=== PATIENT | male | born 1945 | race Caucasian/White ===

== ENCOUNTER 2016-12-13 10:20 | Inpatient (IN) | payer BC, OTHER ==
[~2016-12-13] VITALS: Ht 193 cm; Wt 93.0 kg
[~2016-12-13 10:20] MED LIST: ALFU10TA30 PO; ASPI-435 PO; MULT-506 PO; OMEP40CA PO; SIMV20TA2 PO
[2016-12-13] MEDS ORDERED: SODIUM CHLORIDE 0.9% 1000ML 1,000 ML IV STA ×3 (10:55→13:44)
[2016-12-13] MEDS ORDERED: PRLSR20 PO (11:02)
[2016-12-13] MEDS ORDERED: CHOL100041 PO (11:02)
[2016-12-13 11:42] LABS: URINE APPEARANCE CLOUDY (CLEAR); URINE BILIRUBIN NEG (NEG); URINE COLOR YELLOW; URINE NITRITE POS (NEG); URINE PH 6.5 (4.5-7.5); URINE SPECIFIC GRAVITY 1.015 (1.000-1.030); UROBILINOGEN NEG (NEG)
[2016-12-13 11:47] LABS: MANUAL MICROSCOPIC REQUIRED? NO; REVIEW REQ? NO
[2016-12-13 11:54] LABS: BASO % 0.1 %; BASO ABS # 0.01 K/uL (0-0.2); COMPLETE YES; HEMATOCRIT 35.7 % (42-52); IG% 0.3 %; LYMPH % 5.4 %; LYMPH ABS # 0.71 K/uL (1.2-3.4); MEAN CELL VOLUME 93.7 fL (80-100); MEAN CORPUSCULAR HEMOGLOBIN 33.3 pg (25-34); MEAN CORPUSCULAR HGB CONC 35.6 g/dl (32-36); MEAN PLATELET VOLUME 10.1 fL (7.4-10.4); MONO % 5.5 %; NEUT % 88.7 %; PLATELET COUNT 187 K/uL (130-400); RED BLOOD COUNT 3.81 M/uL (4.7-6.1); WHITE BLOOD COUNT 13.17 K/uL (4.8-10.8)
[2016-12-13 12:02] LABS: INR 1.2 (0.9-1.1); PARTIAL THROMBOPLASTIN RATIO 1.2; PROTHROMBIN TIME (PATIENT) 12.8 SECONDS (9.0-12.0)
[2016-12-13 12:10] LABS: ALT/SGPT 22 U/L (12-78); BLOOD UREA NITROGEN 19 mg/dl (7-18); BUN/CREATININE RATIO 11.9 (10-20); CALCIUM 8.5 mg/dl (8.5-10.1); CARBON DIOXIDE 22 mmol/L (21-32); CHLORIDE 102 mmol/L (98-107); GLUCOSE 140 mg/dl (70-99); POTASSIUM 3.8 mmol/L (3.5-5.1); SODIUM 135 mmol/L (136-145)
[2016-12-13 12:21] LABS: ALKALINE PHOSPHATASE 78 U/L (45-117); AST/SGOT 21 U/L (15-37); THYROID STIMULATING HORMONE 0.114 uIu/ml (0.300-4.500)
[2016-12-13] MEDS ORDERED: PIPERACILLIN/TAZOBACTAM 4.5 GM/100ML D5W IV STA (13:44)
[2016-12-13] MEDS ORDERED: ACETAMINOPHEN 500 MG TAB PO ONE (14:16)
[2016-12-13] MEDS ORDERED: DAPTOmycin IV 500 MG in SODIUM CHLORIDE 0.9% 50ML 50 ML IV STA (14:25)
[2016-12-13] MEDS ORDERED: MAGNESIUM HYDROXIDE SUSP 30 ML UDC PO PRN (15:15)
[2016-12-13] MEDS ORDERED: POLYETHYLENE (MIRALAX) 17 GM PACK PO PRN (15:15)
--- NOTE | 2016-12-13 15:28 | History and Physical ---
History & Physical Date & Time of Service: Dec 13, 2016 at 15:09 Chief Complaint: Uti, Fever, Chills, Body Aches Primary Care Physician: Rancho Mendoza MD, Urology History of Present Illness Source: patient 71 y/o M here with PMH of BPH, GERD c/o increased urinary frequency , urgency, dysuria which started about 2 days ago. He also had fever of about 102 F with chils which started yesterday. he also noticed that he had lower abdominal pressure and decreased UO and was slightly nauseous but denied vomiting/diarrhea/constipation. He had tested His urine at a pharmacy UTI kit which indicated that he had a UTI and was recommended to go to the ER by his Urologist. Denies any coughing though he had upper respiratory s/s last week which have resolved. Denies any h/o kidney stones. had 1 other UTI in the past several years ago. He was also admitted with a HELADIO in 2013 which was thought to be sec to ARB and has since been discontinued. Past Medical/Surgical History Medical Problems: (1) HELADIO (acute kidney injury) Status: Resolved (2) UTI (urinary tract infection) Status: Resolved Family History Cancer Hypertension Lung disease Social History Smoking Status: Never Smoker Immunizations History of Influenza Vaccine: Yes History of Tetanus Vaccine?: Yes History of Pneumococcal: Yes History of Hepatitis B Vaccine: No Multi-Drug Resistant Organisms History of MDRO: No Allergies Coded Allergies: No Known Allergies (Unverified , NONE, 12/13/16) Home Medications Scheduled Alfuzosin Hcl (Uroxatral), 10 MG PO DAILY Aspirin (Aspirin 81), 81 TAB PO DAILY Cholecalciferol (D 1000), 1,000 UNITS PO DAILY Multivitamin (Multivitamin), 1 TAB PO DAILY Omeprazole (Prilosec), 40 MG PO DAILY Simvastatin (Zocor), 20 MG PO 2XWK Review of Systems Constitutional: + chills, + fever, + sweats Eyes: No eye pain, No worsening of vision ENT: No hearing loss Respiratory: No cough, No shortness of breath, No sputum Cardiovascular: No chest pain Abdomen: + nausea, + problem reported (lower abdominal discomfort), No constipation, No diarrhea, No vomiting Musculoskeletal: No joint pain Genitourinary - Male: + dysuria, + urinary frequency, + urinary hesitancy, + urinary urgency Physical Exam Vital Signs Date Time Temp Pulse Resp B/P Pulse Ox O2 Delivery O2 Flow Rate FiO2 12/13/16 14:15 38.0 84 20 142/69 94 Room Air 12/13/16 11:48 82 21 150/71 100 Room Air 12/13/16 11:47 100 Room Air 12/13/16 10:30 37.5 90 18 158/66 95 Room Air General Appearance: WD/WN, no apparent distress Head: normocephalic, atraumatic Eyes: normal inspection ENT: normal ENT inspection, hearing grossly normal Neck: supple Respiratory/Chest: chest non-tender, lungs clear, normal breath sounds, no respiratory distress, no accessory muscle use Cardiovascular: regular rate, rhythm, no edema, no murmur Abdomen/GI: normal bowel sounds, soft Back: normal inspection, no CVA tenderness Extremities/Musculoskelatal: normal inspection, no calf tenderness, no pedal edema Neurologic/Psych: alert, normal mood/affect, oriented x 3 Skin: normal color Diagnostics Laboratory Results Results Past 24 Hours Test 12/13/16 10:45 12/13/16 11:40 12/13/16 11:43 Range/Units Urine Color YELLOW Urine Appearance CLOUDY CLEAR Urine pH 6.5 4.5-7.5 Urine Specific [place] 1.015 1.000-1.030 Urine Protein TRACE NEG Urine Glucose (UA) NEG NEG Urine Ketones TRACE NEG Urine Occult Blood 1+ NEG Urine Nitrite POS NEG Urine Bilirubin NEG NEG Urine Urobilinogen NEG NEG Urine Leukocyte Esterase LARGE NEG Urine WBC (Auto) >30 0-5 /hpf Urine RBC (Auto) 5-10 0-4 /hpf Urine Hyaline Casts (Auto) 1-5 0-5 /lpf Urine Epithelial Cells (Auto) 5-10 0-5 /lpf Urine Bacteria (Auto) 4+ NEG White Blood Count 13.17 4.8-10.8 K/uL Red Blood Count 3.81 4.7-6.1 M/uL Hemoglobin 12.7 14.0-18.0 g/dL Hematocrit 35.7 42-52 % Mean Corpuscular Volume 93.7 80-100 fL Mean Corpuscular Hemoglobin 33.3 25-34 pg Mean Corpuscular Hemoglobin Concent 35.6 32-36 g/dl Platelet Count 187 130-400 K/uL Mean Platelet Volume 10.1 7.4-10.4 fL Neutrophils (%) (Auto) 88.7 % Lymphocytes (%) (Auto) 5.4 % Monocytes (%) (Auto) 5.5 % Eosinophils (%) (Auto) 0.0 % Basophils (%) (Auto) 0.1 % Neutrophils # (Auto) 11.68 1.4-6.5 K/uL Lymphocytes # (Auto) 0.71 1.2-3.4 K/uL Monocytes # (Auto) 0.73 0.11-0.59 K/uL Eosinophils # (Auto) 0.00 0-0.5 K/uL Basophils # (Auto) 0.01 0-0.2 K/uL RDW Standard Deviation 40.2 36.4-46.3 fL RDW Coefficient of Variation 11.9 11.5-14.5 % Immature Granulocyte % (Auto) 0.3 % Immature Granulocyte # (Auto) 0.04 0.00-0.02 K/uL Prothrombin Time 12.8 9.0-12.0 SECONDS Prothromb Time International Ratio 1.2 0.9-1.1 Activated Partial Thromboplast Time 30.3 21.0-31.0 SECONDS Partial Thromboplastin Ratio 1.2 Sodium Level 135 136-145 mmol/L Potassium Level 3.8 3.5-5.1 mmol/L Chloride Level 102 98-107 mmol/L Carbon Dioxide Level 22 21-32 mmol/L Anion Gap 11.0 3-11 mmol/L Blood Urea Nitrogen 19 7-18 mg/dl Creatinine 1.60 0.60-1.40 mg/dl Est Creatinine Clear Calc Drug Dose 51.2 ml/min Estimated GFR () 49.2 Estimated GFR (Non- 42.4 BUN/Creatinine Ratio 11.9 10-20 Random Glucose 140 70-99 mg/dl Calcium Level 8.5 8.5-10.1 mg/dl Magnesium Level 2.0 1.8-2.4 mg/dl Total Bilirubin 1.7 0.2-1 mg/dl Direct Bilirubin 0.4 0-0.2 mg/dl Aspartate Amino Transf (AST/SGOT) 21 15-37 U/L Alanine Aminotransferase (ALT/SGPT) 22 12-78 U/L Alkaline Phosphatase 78 45-117 U/L Troponin I < 0.015 0-0.045 ng/ml Total Protein 7.2 6.4-8.2 gm/dl Albumin 3.7 3.4-5.0 gm/dl Lipase 176 73-393 U/L Thyroid Stimulating Hormone (TSH) 0.114 0.300-4.500 uIu/ml Bedside Lactic Acid Venous 1.90 0.90-1.70 mmol/L Microbiology Results 12/13/16 Blood Culture, Received Pending 12/13/16 Blood Culture, Received Pending 12/13/16 Urine Culture, Received Pending EKG Normal sinus rhythm with 1st degree A-V block Incomplete right bundle branch block Abnormal ECG Impression Assessment and Plan 71 y/o M here with PMH of BPH, GERD c/o increased urinary frequency , urgency, dysuria which started about 2 days ago. He also had fever of about 102 F with chills which started yesterday. Complicated UTI - Febrile with an elevated WBC - UA positive for Large leuc esterase, positive nitrite and 4+bacteria - UC/BC pending - POC lactic acid 1.9, repeat within 6 hours - Received zosyn and daptomycin in ER - Rocephin 1g daily - Continue IVF- NSS 150 mls/hr HELADIO : - Cr at 1.6, baseline at 1.2 - Likely sec to dehydration - Continue IVF and Monitor Cr BPH - Continue alfuzosin Hypercholesterolemia: - Continue Simvastatin( uses it only 2 times/week due to muscle aches) ?New onset hyperthyroidism: - TSH low at 0.114 - Free T4 ordered DVT prophylaxis: Lovenox Full code Dispo: Med/surg Level of Care Med/Surg Resuscitation Status FULL RESUSCITATION VTE Prophylaxis VTE Risk Assessment Done? Y/N: Yes Risk Level: Moderate Given or contraindicated: Enoxaparin (Lovenox)SQ Reviewed: Pt Seen/Exam by Me, RN Notes, HO Notes, Prior Records, Labs, RAD, EKG History Resident Physician Supervision Note: I was present with Dr. love during the history and exam. I discussed the case with the resident and agree with the findings and plan as documented in the note. Any exceptions or clarifications are listed here: 71 y/o M here with PMH of BPH, GERD c/o increased urinary frequency , urgency, dysuria which started about 2 days ago. He also had fever of about 102 F with chills which started yesterday. Constitutional: denies: chills EENTM: denies: tearing Respiratory: negative: cough Gastrointestinal/Abdominal: negative: see HPI Genitourinary: positive dysuria, positive frequency Musculoskeletal: negative: back pain Neurological/Psych: negative: anxiety Hematologic/Lymphatic: negative: anemia General Appearance: WD/WN, no apparent distress Eye Exam: bilateral eye normal inspection Ears, Nose, Throat: hearing grossly normal Neck: non-tender Respiratory: lungs clear, no accessory muscle use Cardiovascular: regular rate, rhythm, no murmur Gastrointestinal: no pulsatile mass Extremities: normal inspection Neurologic/Psychiatric: alert, oriented x 3 Skin Characteristics: warm/dry Assessment/Plan A 71 yo male comes with 1. Complicated UTI UA positive for Large leuc esterase, positive nitrite and 4+bacteria Ur and bl cx pending POC lactic acid 1.9, repeat within 6 hours start Rocephin 1g daily 2. Dehydration Continue IVF- NSS 150 mls/hr 3. HELADIO : Cr at 1.6, baseline at 1.2 Likely sec to dehydration Continue IVF and Monitor Cr BPH Continue alfuzosin Hypercholesterolemia: Continue Simvastatin( uses it only 2 times/week due to muscle aches) TSH low at 0.114 Free T4 ordered DVT prophylaxis: Lovenox sq Full code Dispo: Med/surg Documented By: Dean Green time spent 40 min
--- NOTE | 2016-12-13 16:40 | EMERGENCY ROOM VISIT NOTE ---
History Report prepared by Kelly: Kvng Mcarthur Under the Supervision of: Dr. Mohan Bustamante M.D. First contact with patient: 10:53 Chief Complaint: URINARY SYMPTOMS Stated Complaint: UTI, FEVER, CHILLS, BODY ACHES Nursing Triage Summary: believes he has uti sx fever and chills, painful urination. took test kit for uti was positive. sx started saturday History of Present Illness The patient is a 71 year old male who presents to the Emergency Room with complaints of persistent urinary symptoms starting 2 days ago. He reports burning with urination and increased frequency of urination. He states the burning with urination has improved since its initial onset. He also complains of pain in the bladder area and left hip. 2 days ago, the patient had a fever with a temperature of 102 degrees Fahrenheit. This morning, he had a temperature of 100.4 degrees Fahrenheit. He also complains of flu-like symptoms occurring for the past few days. He reports increased weakness and tiredness. He obtained an [id number] UTI test kit which showed moderate UTI today. He has a history of UTI occurring 6 years ago. He also has a history of acute kidney injury. The patient states that his kidney function is back to normal now. Pt denies LOC, headache, chills, diaphoresis, visual changes, neck pain, chest pain, breathing difficulties, nausea, vomiting, abdominal pain, back pain , melena, hematochezia, numbness, lymphadenopathy, rash, or other complaints. Source of History: patient Onset: 2 days ago Position: other (global) Quality: other (urinary symptoms) Timing: other (persistent) Associated Symptoms: + fevers, + weakness Review of Systems See HPI for pertinent positives and negatives. A total of ten systems were reviewed and were otherwise negative. Past Medical & Surgical Medical Problems: (1) HELADIO (acute kidney injury) (2) UTI (urinary tract infection) Family History Cancer Hypertension Lung disease Social History Smoking Status: Never Smoker Marital Status: single Occupation Status: retired Current/Historical Medications Scheduled Alfuzosin Hcl (Uroxatral), 10 MG PO DAILY Aspirin (Aspirin 81), 81 TAB PO DAILY Cholecalciferol (D 1000), 1,000 UNITS PO DAILY Multivitamin (Multivitamin), 1 TAB PO DAILY Omeprazole (Prilosec), 40 MG PO DAILY Simvastatin (Zocor), 20 MG PO 2XWK Allergies Coded Allergies: No Known Allergies (Unverified , NONE, 12/13/16) Physical Exam Vital Signs Date Time Temp Pulse Resp B/P Pulse Ox O2 Delivery O2 Flow Rate FiO2 12/13/16 14:15 38.0 84 20 142/69 94 Room Air 12/13/16 11:48 82 21 150/71 100 Room Air 12/13/16 11:47 100 Room Air 12/13/16 10:30 37.5 90 18 158/66 95 Room Air Physical Exam GENERAL: Awake, alert, well-appearing, in no distress HENT: Normocephalic, atraumatic. Oropharynx unremarkable. EYES: Normal conjunctiva. Sclera non-icteric. NECK: Supple. No nuchal rigidity. FROM. No JVD. RESPIRATORY: Clear to auscultation. CARDIAC: Regular rate, normal rhythm. Extremities warm and well perfused. Pulses equal. ABDOMEN: Soft, non-distended. Minimal suprapubic discomfort to palpation. No rebound or guarding. No masses. RECTAL: Deferred. MUSCULOSKELETAL: Chest examination reveals no tenderness. The back is symmetrical on inspection without obvious abnormality. There is no CVA tenderness to palpation. No joint edema. LOWER EXTREMITIES: Calves are equal size bilaterally and non-tender. No edema. No discoloration. NEURO: Normal sensorium. No sensory or motor deficits noted. SKIN: No rash or jaundice noted. Medical Decision & Procedures Laboratory Results 12/13/16 11:40 Red Blood Count 3.81, Mean Corpuscular Volume 93.7, Mean Corpuscular Hemoglobin 33.3, Mean Corpuscular Hemoglobin Concent 35.6, Mean Platelet Volume 10.1, Neutrophils (%) (Auto) 88.7, Lymphocytes (%) (Auto) 5.4, Monocytes (%) (Auto) 5.5, Eosinophils (%) (Auto) 0.0, Basophils (%) (Auto) 0.1, Neutrophils # (Auto) 11.68, Lymphocytes # (Auto) 0.71, Monocytes # (Auto) 0.73, Eosinophils # (Auto) 0.00, Basophils # (Auto) 0.01 12/13/16 11:40 Test 12/13/16 10:45 12/13/16 11:40 12/13/16 11:43 Urine Color YELLOW Urine Appearance CLOUDY (CLEAR) Urine pH 6.5 (4.5-7.5) Urine Specific [place] 1.015 (1.000-1.030) Urine Protein TRACE (NEG) Urine Glucose (UA) NEG (NEG) Urine Ketones TRACE (NEG) Urine Occult Blood 1+ (NEG) Urine Nitrite POS (NEG) Urine Bilirubin NEG (NEG) Urine Urobilinogen NEG (NEG) Urine Leukocyte Esterase LARGE (NEG) Urine WBC (Auto) >30 /hpf (0-5) Urine RBC (Auto) 5-10 /hpf (0-4) Urine Hyaline Casts (Auto) 1-5 /lpf (0-5) Urine Epithelial Cells (Auto) 5-10 /lpf (0-5) Urine Bacteria (Auto) 4+ (NEG) White Blood Count 13.17 K/uL (4.8-10.8) Red Blood Count 3.81 M/uL (4.7-6.1) Hemoglobin 12.7 g/dL (14.0-18.0) Hematocrit 35.7 % (42-52) Mean Corpuscular Volume 93.7 fL (80-100) Mean Corpuscular Hemoglobin 33.3 pg (25-34) Mean Corpuscular Hemoglobin Concent 35.6 g/dl (32-36) Platelet Count 187 K/uL (130-400) Mean Platelet Volume 10.1 fL (7.4-10.4) Neutrophils (%) (Auto) 88.7 % Lymphocytes (%) (Auto) 5.4 % Monocytes (%) (Auto) 5.5 % Eosinophils (%) (Auto) 0.0 % Basophils (%) (Auto) 0.1 % Neutrophils # (Auto) 11.68 K/uL (1.4-6.5) Lymphocytes # (Auto) 0.71 K/uL (1.2-3.4) Monocytes # (Auto) 0.73 K/uL (0.11-0.59) Eosinophils # (Auto) 0.00 K/uL (0-0.5) Basophils # (Auto) 0.01 K/uL (0-0.2) RDW Standard Deviation 40.2 fL (36.4-46.3) RDW Coefficient of Variation 11.9 % (11.5-14.5) Immature Granulocyte % (Auto) 0.3 % Immature Granulocyte # (Auto) 0.04 K/uL (0.00-0.02) Prothrombin Time 12.8 SECONDS (9.0-12.0) Prothromb Time International Ratio 1.2 (0.9-1.1) Activated Partial Thromboplast Time 30.3 SECONDS (21.0-31.0) Partial Thromboplastin Ratio 1.2 Anion Gap 11.0 mmol/L (3-11) Est Creatinine Clear Calc Drug Dose 51.2 ml/min Estimated GFR () 49.2 Estimated GFR (Non- 42.4 BUN/Creatinine Ratio 11.9 (10-20) Calcium Level 8.5 mg/dl (8.5-10.1) Magnesium Level 2.0 mg/dl (1.8-2.4) Total Bilirubin 1.7 mg/dl (0.2-1) Direct Bilirubin 0.4 mg/dl (0-0.2) Aspartate Amino Transf (AST/SGOT) 21 U/L (15-37) Alanine Aminotransferase (ALT/SGPT) 22 U/L (12-78) Alkaline Phosphatase 78 U/L (45-117) Troponin I < 0.015 ng/ml (0-0.045) Total Protein 7.2 gm/dl (6.4-8.2) Albumin 3.7 gm/dl (3.4-5.0) Lipase 176 U/L (73-393) Thyroid Stimulating Hormone (TSH) 0.114 uIu/ml (0.300-4.500) Free Thyroxine 1.03 ng/dl (0.80-1.60) Bedside Lactic Acid Venous 1.90 mmol/L (0.90-1.70) Laboratory results reviewed by me Medications Administered Medications (Trade) Dose Ordered Sig/William Route Start Time Stop Time Status Last Admin Dose Admin Sodium Chloride 1,000 ml @ 125 mls/hr Q8H STAT IV 12/13/16 10:55 12/13/16 16:19 DC 12/13/16 11:44 125 MLS/HR Sodium Chloride 1,000 ml @ 999 mls/hr Q1H1M STAT IV 12/13/16 13:44 12/13/16 14:44 DC 12/13/16 14:19 999 MLS/HR Sodium Chloride (Nss 1000ml) 1,000 ml @ 200 mls/hr Q5H STAT IV 12/13/16 13:44 12/13/16 18:43 12/13/16 13:44 200 MLS/HR Piperacillin Sod/ Tazobactam Sod (Zosyn Iv) 4.5 gm NOW STAT IV 12/13/16 13:44 12/13/16 13:45 DC 12/13/16 14:19 4.5 GM Acetaminophen 1000 mg 1,000 mg STK-MED ONCE PO 12/13/16 14:16 12/13/16 14:18 DC 12/13/16 14:21 1,000 MG Daptomycin/Sodium Chloride (Cubicin IV/Nss 50ml) 60 ml @ 100 mls/hr NOW STAT IV 12/13/16 14:25 12/13/16 15:00 DC 12/13/16 14:46 100 MLS/HR ECG Indication: other (fever) Rate (beats per minute): 80 Rhythm: sinus rhythm Findings: 1st degree AV block, RBBB (incomplete), no acute ischemic change ED Course 1053: The patient was evaluated in room B02. A complete history and physical exam was performed. 1055: Sodium Chloride 1000 ml @ 125 mls/hr IV 1344: Zosyn IV 4.5 gm IV, Sodium Chloride 1000 ml @ 200 mls/hr IV, Sodium Chloride 1000 ml @ 999 mls/hr IV 1416: Tylenol Tab 1000 mg PO 1425: Daptomycin 500 mg/Sodium Chloride 60 ml @ 100 mls/hr IV. Upon reexamination, the patient was resting comfortably. I discussed the test results and treatment plan with him. I spoke with Dr. Green, from [facility]. The patient will be evaluated for further management. Medical Decision Triage Nursing notes reviewed. The patient's presentation and history were concerning for flulike symptoms and urinary symptoms with history of UTI. Etiologies such as urinary tract infection, sepsis, bacteremia, viral syndrome, otitis, pharyngitis, pneumonia, meningitis, as well as others were entertained. The patient was evaluated. Clinically he was doing well although he seemed tired. He had a borderline temperature and his pulse rate was slightly elevated but not tachycardic. Blood work was obtained as well as urinalysis. The patient had a mild anemia on CBC that an elevated leukocytosis. The patient 's urinalysis was very concerning for infection. The patient had a slight decrease in his TSH. Lactate was elevated as well. Creatinine was minimally elevated but increased from his baseline of 1.2-1.6. Given the findings this is concerning for SIRS from a urinary source. The patient was treated with fluids, Tylenol, Zosyn, and daptomycin for empiric coverage. I discussed further treatment in the hospital and the patient was in agreement. Consultation was made with internal medicine and the patient was evaluated for further management. The chart was completed utilizing [employer] Speech voice recognition software. Grammatical errors, random word insertions, pronoun errors, and incomplete sentences are an occasional consequence of this system due to software limitations, ambient noise, and hardware issues. Any formal questions or concerns about the content, text, or information contained within the body of this dictation should be directly addressed to the physician for clarification. Consults Time Called: 1422 Consulting Physician: Dr. Green, from [facility] Returned Call: [address] Green, from [facility]. Impression Primary Impression: UTI (urinary tract infection) Additional Impression: SIRS (systemic inflammatory response syndrome) Scribe Attestation The scribe's documentation has been prepared under my direction and personally reviewed by me in its entirety. I confirm that the note above accurately reflects all work, treatment, procedures, and medical decision making performed by me. Departure Information Dispostion Being Evaluated By Hospitalist Referrals Rancho Mendoza MD, Urology (PCP) Patient Instructions My [facility] Health Problem Qualifiers
[2016-12-13] MEDS: SODIUM CHLORIDE 0.9% 1000ML 1,000 ML IV SCH (17:08)
[2016-12-13] MEDS: ENOXAPARIN 40 MG/0.4 ML SYR SQ SCH (19:42)
[2016-12-13] MEDS: CEFTRIAXONE SOD INJ 1 GM in DEXTROSE 5% ADD-VANTAGE 50ML 50 ML IV SCH (19:42)
[2016-12-13 20:18] VITALS: BP 95/50; PULSE 83; TEMP 36.9; O2SAT 96; Ht 193 cm; Wt 93.0 kg
[2016-12-13 23:29] VITALS: BP 132/63; PULSE 90; TEMP 36.9; O2SAT 96
[2016-12-14] MEDS: SODIUM CHLORIDE 0.9% 1000ML 1,000 ML IV SCH ×3 (00:29→13:10)
[2016-12-14] MEDS: ACETAMINOPHEN 325 MG TAB PO PRN ×2 (00:32→09:19)
[2016-12-14 04:12] VITALS: BP 112/67; PULSE 66; TEMP 36.4; O2SAT 97
[2016-12-14 05:19] VITALS: O2SAT 96
[2016-12-14 07:30] VITALS: BP 122/66; PULSE 70; TEMP 36.6; O2SAT 99
[2016-12-14] MEDS: ALFUZosin TAB 10 MG TAB PO SCH (09:19)
[2016-12-14] MEDS: PANTOprazole SOD 40 MG TAB PO SCH (09:19)
[2016-12-14] MEDS: ASPIRIN 81 MG ECTAB PO SCH (09:19)
[2016-12-14] MEDS ORDERED: OXYCODONE HCL IR 5 MG TAB (IMMEDIATE RELEASE) PO STA (09:48)
[2016-12-14] MEDS ORDERED: OXYCODONE HCL IR 5 MG TAB (IMMEDIATE RELEASE) PO PRN (10:00)
--- NOTE | 2016-12-14 11:06 | Family Medicine Progress Note ---
Progress Note Date of Service Dec 14, 2016. Subjective Pt evaluation today including: conversation w/ patient, physical exam Mr Arnold reports he had a UTI once in the past, treated with Levaquin He reports he usually sees Dr Mendoza, last saw him in [facility], and reports his prostate has never been an issue Reports overnight he was catheterized intermittently q4h which was still uncomfortable, and now when he tries to urinate he is still straining and has urinary hesitancy. Each time he had a bladder scan he was retaining 600,400, and then 600mL. Requesting Blair catheter. Denies any more fevers or chills Constitutional: No chills, No fever, No sweats, No weight loss ENT: No hearing loss Respiratory: No cough, No shortness of breath, No sputum Cardiovascular: No chest pain Abdomen: No nausea, No pain Male : + problem reported All Other Systems: Reviewed and Negative Medications Current Inpatient Medications Medications (Trade) Dose Ordered Sig/William Route Start Time Stop Time Status Last Admin Dose Admin Acetaminophen (Tylenol Tab) 650 mg Q4H PRN PO 12/13/16 18:00 01/12/17 17:59 12/14/16 09:19 650 MG Magnesium Hydroxide (Milk Of Magnesia Susp) 30 ml Q6H PRN PO 12/13/16 15:15 01/12/17 15:14 Polyethylene (Miralax Powder Packet) 17 gm DAILY PRN PO 12/13/16 15:15 01/12/17 15:14 Alfuzosin HCl (Uroxatral Tab) 10 mg DAILY PO 12/14/16 09:00 01/13/17 08:59 12/14/16 09:19 10 MG Pantoprazole Sodium (Protonix Tab) 40 mg QAM PO 12/14/16 09:00 01/13/17 08:59 12/14/16 09:19 40 MG Aspirin (Ecotrin Tab) 81 mg QAM PO 12/14/16 09:00 01/13/17 08:59 12/14/16 09:19 81 MG Enoxaparin Sodium 40 mg 40 mg DAILY@1800 SQ 12/13/16 17:00 01/12/17 16:59 12/13/16 19:42 40 MG Sodium Chloride 1,000 ml @ 150 mls/hr Q6H40M IV 12/13/16 17:00 01/12/17 16:59 12/14/16 06:20 150 MLS/HR Ceftriaxone Sodium/Dextrose (Rocephin Inj/ Dextrose Add-[place] 50ML) 50 ml @ 100 mls/hr Q24H IV 12/13/16 20:00 12/23/16 19:59 12/13/16 19:42 100 MLS/HR Oxycodone HCl (Roxicodone Immediate Rel Tab) 5 mg Q4H PRN PO 12/14/16 10:00 12/28/16 09:59 Objective Vital Signs Date Time Temp Pulse Resp B/P Pulse Ox O2 Delivery O2 Flow Rate FiO2 12/14/16 07:30 36.6 70 16 122/66 99 Room Air 12/14/16 05:19 96 Room Air 12/14/16 04:12 36.4 66 16 112/67 97 12/13/16 23:29 36.9 90 20 132/63 96 Room Air 12/13/16 20:18 36.9 83 18 95/50 96 Room Air 12/13/16 15:46 88 22 141/58 97 Room Air 12/13/16 14:15 38.0 84 20 142/69 94 Room Air 12/13/16 11:48 82 21 150/71 100 Room Air 12/13/16 11:47 100 Room Air Physical Exam General Appearance: WD/WN, no apparent distress Eyes: normal inspection, PERRL ENT: hearing grossly normal Neck: supple, no JVD Respiratory/Chest: lungs clear, normal breath sounds Cardiovascular: regular rate, rhythm, no murmur Abdomen: normal bowel sounds, non tender, soft Neurologic/Psychiatric: alert, normal mood/affect, oriented x 3 Skin: no rash Laboratory Results Last 24 Hours Test 12/13/16 11:40 12/13/16 11:43 12/13/16 18:33 White Blood Count 13.17 K/uL Red Blood Count 3.81 M/uL Hemoglobin 12.7 g/dL Hematocrit 35.7 % Mean Corpuscular Volume 93.7 fL Mean Corpuscular Hemoglobin 33.3 pg Mean Corpuscular Hemoglobin Concent 35.6 g/dl Platelet Count 187 K/uL Mean Platelet Volume 10.1 fL Neutrophils (%) (Auto) 88.7 % Lymphocytes (%) (Auto) 5.4 % Monocytes (%) (Auto) 5.5 % Eosinophils (%) (Auto) 0.0 % Basophils (%) (Auto) 0.1 % Neutrophils # (Auto) 11.68 K/uL Lymphocytes # (Auto) 0.71 K/uL Monocytes # (Auto) 0.73 K/uL Eosinophils # (Auto) 0.00 K/uL Basophils # (Auto) 0.01 K/uL RDW Standard Deviation 40.2 fL RDW Coefficient of Variation 11.9 % Immature Granulocyte % (Auto) 0.3 % Immature Granulocyte # (Auto) 0.04 K/uL Prothrombin Time 12.8 SECONDS Prothromb Time International Ratio 1.2 Activated Partial Thromboplast Time 30.3 SECONDS Partial Thromboplastin Ratio 1.2 Sodium Level 135 mmol/L Potassium Level 3.8 mmol/L Chloride Level 102 mmol/L Carbon Dioxide Level 22 mmol/L Anion Gap 11.0 mmol/L Blood Urea Nitrogen 19 mg/dl Creatinine 1.60 mg/dl Est Creatinine Clear Calc Drug Dose 51.2 ml/min Estimated GFR () 49.2 Estimated GFR (Non- 42.4 BUN/Creatinine Ratio 11.9 Random Glucose 140 mg/dl Calcium Level 8.5 mg/dl Magnesium Level 2.0 mg/dl Total Bilirubin 1.7 mg/dl Direct Bilirubin 0.4 mg/dl Aspartate Amino Transf (AST/SGOT) 21 U/L Alanine Aminotransferase (ALT/SGPT) 22 U/L Alkaline Phosphatase 78 U/L Troponin I < 0.015 ng/ml Total Protein 7.2 gm/dl Albumin 3.7 gm/dl Lipase 176 U/L Thyroid Stimulating Hormone (TSH) 0.114 uIu/ml Free Thyroxine 1.03 ng/dl Bedside Lactic Acid Venous 1.90 mmol/L Lactic Acid Level 1.5 mmol/L Assessment and Plan 71 year old male with BPH who presents with UTI and urinary retention. Pending urine cultures, on Day 2 of IV Rocephin. Early sepsis, with urinary source Lactate 1.90 on admission, then 1.5 6 hours later Received IV fluids. will d/c now. Cultures (Blood and urine) taken prior to Abx administration I&O monitoring E. Coli Urinary tract infection Day 2 of IV Rocephin 1gm q24h Urine culture from 2008 pansensitive, no hx of ESBL Urology consult Blair catheter placed BPH with urinary retention Continue alfuzosin drained 800ml with blair catheter Urology consult Acute renal insufficiency Monitor creatinine, elevated at 1.6 on admission, baseline 1.2 Likely pre-renal, though if worsens would consider if ?post-renal Hypercholesterolemia Continue Simvastatin Low TSH Check Free T4 DVT prophylaxis: Heparin Full code Dispo: Med/surg Resident Tracking Resident Involvement: Resident Care Provided Care Provided: Adult Hospital Medicine Reviewed: Pt Seen/Exam by Me History had blair placed this am. drained 800ml of urine Constitutional: denies: fever Respiratory: negative: short of breath Cardiovascular: denies chest pain General Appearance: no apparent distress Respiratory: lungs clear, no respiratory distress Cardiovascular: regular rate, rhythm Gastrointestinal: normal bowel sounds, non tender, soft Neurologic/Psychiatric: alert, oriented x 3 Skin Characteristics: warm/dry Assessment/Plan I have reviewed the medical record and performed a history and physical examination of this patient today. I have discussed the case with Dr. Ruiz. The above note reflects my findings, conclusions, and recommendations.
[2016-12-14 11:29] VITALS: BP 132/82; PULSE 64; TEMP 36.5; O2SAT 98
--- NOTE | 2016-12-14 12:07 | Clinical Documentation Query ---
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 Thank you. ( x ) Early sepsis due to UTI, POA ( ) Early sepsis due to UTI, not POA QUERY 2 OF 2 Admission diagnoses include HELADIO. Subsequent documentation has included "acute renal insufficiency". The former, in coding language, is synonymous with acute renal failure. The latter is not. Rather, it indexes to an "unspecified disorder of the kidney". Accordingly, these two diagnostic statements not only assign to different ICD-10 codes, but carry a different degree of risk of mortality and severity of illness. Please clarify. In your clinical opinion is this patient being managed for: ( ) Acute kidney failure ( ) Acute renal insufficiency ( ) Other explanation of clinical findings (Please Explain) ( ) Unable to determine (Please Define) ( ) Need to Discuss ( ) Not Agree The medical record reflects the following clinical findings, treatment, and risk factors. Clinical Indicators: As above Treatment: Serial chemistries Risk Factors: Age, infection, medications. Please clarify and document your clinical opinion in the progress notes and discharge summary. Terms such as "probable", "suspected", "likely", "questionable", "possible", or "still to be ruled out" are acceptable. IF IN AGREEMENT, YOU MUST DOCUMENT ABOVE DIAGNOSTIC STATEMENT IN DAILY PROGRESS NOTES AND DISCHARGE SUMMARY. This document is not part of the patient's record. Thank You, Meño Dorsey, BELKYS [phone]
[2016-12-14 12:37] LABS: BASO % 0.1 %; BASO ABS # 0.01 K/uL (0-0.2); COMPLETE YES; HEMATOCRIT 30.7 % (42-52); IG% 0.3 %; LYMPH % 5.9 %; LYMPH ABS # 0.68 K/uL (1.2-3.4); MEAN CELL VOLUME 92.5 fL (80-100); MEAN CORPUSCULAR HEMOGLOBIN 32.5 pg (25-34); MEAN CORPUSCULAR HGB CONC 35.2 g/dl (32-36); MEAN PLATELET VOLUME 10.2 fL (7.4-10.4); MONO % 5.6 %; NEUT % 88.1 %; PLATELET COUNT 142 K/uL (130-400); RED BLOOD COUNT 3.32 M/uL (4.7-6.1); WHITE BLOOD COUNT 11.45 K/uL (4.8-10.8)
[2016-12-14 13:29] LABS: BUN/CREATININE RATIO 13.9 (10-20); CALCIUM 7.9 mg/dl (8.5-10.1); CREATININE 1.2 mg/dl (0.60-1.40); POTASSIUM 3.5 mmol/L (3.5-5.1)
[2016-12-14 13:33] LABS: ALB/GLOB RATIO 0.8 (0.9-2)
[2016-12-14 15:05] VITALS: BP 120/67; PULSE 67; TEMP 36.5; O2SAT 96
[2016-12-14] MEDS: ENOXAPARIN 40 MG/0.4 ML SYR SQ SCH (17:42)
[2016-12-14] MEDS: CEFTRIAXONE SOD INJ 1 GM in DEXTROSE 5% ADD-VANTAGE 50ML 50 ML IV SCH (19:50)
[2016-12-14] MEDS ORDERED: ZOLPIDEM TARTRATE 5 MG TAB PO PRN (23:45)
[2016-12-14 23:49] VITALS: BP 118/57; PULSE 74; TEMP 37.2; O2SAT 96
[2016-12-15 07:25] LABS: BASO % 0.1 %; BASO ABS # 0.01 K/uL (0-0.2); COMPLETE YES; EOS % 1.1 %; HEMATOCRIT 29.5 % (42-52); IG% 0.1 %; LYMPH ABS # 0.84 K/uL (1.2-3.4); MEAN CELL VOLUME 92.2 fL (80-100); MEAN CORPUSCULAR HEMOGLOBIN 32.8 pg (25-34); MEAN CORPUSCULAR HGB CONC 35.6 g/dl (32-36); MEAN PLATELET VOLUME 10.6 fL (7.4-10.4); MONO % 6.7 %; PLATELET COUNT 138 K/uL (130-400); WHITE BLOOD COUNT 8.41 K/uL (4.8-10.8)
[2016-12-15 07:59] LABS: BUN/CREATININE RATIO 11.5 (10-20); CALCIUM 7.8 mg/dl (8.5-10.1); CREATININE 1.1 mg/dl (0.60-1.40); POTASSIUM 3.5 mmol/L (3.5-5.1)
[2016-12-15 08:00] VITALS: BP 140/68; PULSE 68; TEMP 36.6; O2SAT 94
[2016-12-15 08:30] VITALS: O2SAT 94
[2016-12-15] MEDS: PANTOprazole SOD 40 MG TAB PO SCH (08:42)
[2016-12-15] MEDS: ALFUZosin TAB 10 MG TAB PO SCH (08:42)
[2016-12-15] MEDS: ASPIRIN 81 MG ECTAB PO SCH (08:43)
--- NOTE | 2016-12-15 10:35 | Urology Consultation ---
History General Date of Service: Dec 15, 2016. Primary Care Physician: Rancho Mendoza MD, Urology History of Present Illness Patient is a 31-year-old white male patient of Dr. Rancho Mendoza's who is admitted through the emergency room with fever and shaking chills secondary to a urinary tract infection. Patient says he's had something similar to this about 7 years ago. He says he started having some dysuria and urinary frequency and urgency and then developed a fever of 102 when he came to the emergency room. While in the hospital he was having difficulty voiding he is known to have an enlarged prostate and is currently on Uroxatral daily He tells me prior to the infection he was voiding okay Currently since being on antibiotics for 24 hours as he is feeling much better he does have a Nickerson catheter indwelling. Laboratory Last Vital Signs Documentation Date Time Temp Pulse Resp B/P Pulse Ox O2 Delivery O2 Flow Rate FiO2 12/15/16 08:30 94 Room Air 12/15/16 08:00 36.6 68 21 140/68 12/14/16 11:29 2.0 Last 24 Hours Test 12/14/16 12:20 12/15/16 06:40 White Blood Count 11.45 K/uL 8.41 K/uL Red Blood Count 3.32 M/uL 3.20 M/uL Hemoglobin 10.8 g/dL 10.5 g/dL Hematocrit 30.7 % 29.5 % Mean Corpuscular Volume 92.5 fL 92.2 fL Mean Corpuscular Hemoglobin 32.5 pg 32.8 pg Mean Corpuscular Hemoglobin Concent 35.2 g/dl 35.6 g/dl Platelet Count 142 K/uL 138 K/uL Mean Platelet Volume 10.2 fL 10.6 fL Neutrophils (%) (Auto) 88.1 % 82.0 % Lymphocytes (%) (Auto) 5.9 % 10.0 % Monocytes (%) (Auto) 5.6 % 6.7 % Eosinophils (%) (Auto) 0.0 % 1.1 % Basophils (%) (Auto) 0.1 % 0.1 % Neutrophils # (Auto) 10.08 K/uL 6.90 K/uL Lymphocytes # (Auto) 0.68 K/uL 0.84 K/uL Monocytes # (Auto) 0.64 K/uL 0.56 K/uL Eosinophils # (Auto) 0.00 K/uL 0.09 K/uL Basophils # (Auto) 0.01 K/uL 0.01 K/uL RDW Standard Deviation 41.7 fL 42.2 fL RDW Coefficient of Variation 12.2 % 12.4 % Immature Granulocyte % (Auto) 0.3 % 0.1 % Immature Granulocyte # (Auto) 0.04 K/uL 0.01 K/uL Sodium Level 140 mmol/L 142 mmol/L Potassium Level 3.5 mmol/L 3.5 mmol/L Chloride Level 111 mmol/L 110 mmol/L Carbon Dioxide Level 19 mmol/L 21 mmol/L Anion Gap 10.0 mmol/L 11.0 mmol/L Blood Urea Nitrogen 17 mg/dl 13 mg/dl Creatinine 1.20 mg/dl 1.10 mg/dl Est Creatinine Clear Calc Drug Dose 68.3 ml/min 74.5 ml/min Estimated GFR () 69.6 77.3 Estimated GFR (Non- 60.1 66.7 BUN/Creatinine Ratio 13.9 11.5 Random Glucose 130 mg/dl 99 mg/dl Calcium Level 7.9 mg/dl 7.8 mg/dl Total Bilirubin 0.8 mg/dl Aspartate Amino Transf (AST/SGOT) 18 U/L Alanine Aminotransferase (ALT/SGPT) 18 U/L Alkaline Phosphatase 64 U/L Total Protein 6.1 gm/dl Albumin 2.8 gm/dl Globulin 3.3 gm/dl Albumin/Globulin Ratio 0.8 Problem List Medical Problems: (1) SIRS (systemic inflammatory response syndrome) Status: Acute Past History BPH, GERD, high cholesterol, hypertension, urinary tract infection, other Past Surgical History: appendectomy, colonoscopy, EGD, vasectomy, other Family History Cancer Hypertension Lung disease Social History Hx Tobacco Use In Past Year?: No Smoking: quit greater than 1 year Alcohol: socially Marital status: single Occupation status: retired Immunizations History of Influenza Vaccine: Yes History of Tetanus Vaccine?: Yes History of Pneumococcal: Yes History of Hepatitis B Vaccine: No History of MDRO No Allergies Coded Allergies: No Known Allergies (Unverified , NONE, 12/13/16) Medications Home Medications: Home Meds and Scripts Medications Dose Route/Sig Max Daily Dose Days Date Category D 1000 (Cholecalciferol) 1,000 Unit Cap 1,000 Units PO DAILY 12/13/16 Reported Prilosec (Omeprazole) 20 Mg Capcr 40 Mg PO DAILY 12/13/16 Reported Uroxatral (Alfuzosin HCl) 10 Mg Tab 10 Mg PO DAILY 04/05/15 Reported Aspirin 81 (Aspirin) 81 Mg Tab 81 Tab PO DAILY 07/06/14 Reported Multivitamin (Multivitamins) Tab 1 Tab PO DAILY 03/16/14 Reported Zocor (Simvastatin) 20 Mg Tab 20 Mg PO 2XWK 12/27/13 Reported Inpatient Medications: Current Inpatient Medications Medications (Trade) Dose Ordered Sig/William Route Start Time Stop Time Status Last Admin Dose Admin Acetaminophen (Tylenol Tab) 650 mg Q4H PRN PO 12/13/16 18:00 01/12/17 17:59 12/14/16 09:19 650 MG Magnesium Hydroxide (Milk Of Magnesia Susp) 30 ml Q6H PRN PO 12/13/16 15:15 01/12/17 15:14 Polyethylene (Miralax Powder Packet) 17 gm DAILY PRN PO 12/13/16 15:15 01/12/17 15:14 Alfuzosin HCl (Uroxatral Tab) 10 mg DAILY PO 12/14/16 09:00 01/13/17 08:59 12/15/16 08:42 10 MG Pantoprazole Sodium (Protonix Tab) 40 mg QAM PO 12/14/16 09:00 01/13/17 08:59 12/15/16 08:42 40 MG Aspirin (Ecotrin Tab) 81 mg QAM PO 12/14/16 09:00 01/13/17 08:59 12/15/16 08:43 81 MG Enoxaparin Sodium 40 mg 40 mg DAILY@1800 SQ 12/13/16 17:00 01/12/17 16:59 12/14/16 17:42 40 MG Ceftriaxone Sodium/Dextrose (Rocephin Inj/ Dextrose Add-[place] 50ML) 50 ml @ 100 mls/hr Q24H IV 12/13/16 20:00 12/23/16 19:59 12/14/16 19:50 100 MLS/HR Oxycodone HCl (Roxicodone Immediate Rel Tab) 5 mg Q4H PRN PO 12/14/16 10:00 12/28/16 09:59 12/15/16 05:56 5 MG Zolpidem Tartrate (Ambien Tab) 5 mg HS PRN PO 12/14/16 23:45 01/13/17 23:44 12/14/16 23:53 5 MG Review of Systems Review of Systems Additional Comments: View of systems reviewed from his admission evaluations Physical Exam Vital Signs: Vital Signs Past 12 Hours Date Time Temp Pulse Resp B/P Pulse Ox O2 Delivery O2 Flow Rate FiO2 12/15/16 08:30 94 Room Air 12/15/16 08:00 36.6 68 21 140/68 94 Room Air 12/15/16 07:55 Room Air 12/15/16 00:10 Room Air 12/14/16 23:49 37.2 74 20 118/57 96 Room Air Physical Exam: General Appearance: WD/WN, no apparent distress Eyes: bilateral eyes normal inspection ENT: hearing grossly normal Respiratory/Chest: lungs clear, normal breath sounds, no respiratory distress, no accessory muscle use Cardiovascular: regular rate, rhythm Gastrointestinal: Abdomen: normal abdomen Genitourinary - Male: Urethral Meatus: normal urethral meatus Testes: normal testes Epididymides: normal epididymides Scrotum: normal scrotum Assessment & Plan Assessment & Plan Assessment #1-urinary tract infection probable prostatitis He had a renal ultrasound which I reviewed which showed no hydronephrosis kidneys appeared normal Urine culture grew out Escherichia coli which was pansensitive Since he is improving on antibiotic treatment I would treat this as a prostatitis I would leave him on for weeks total of antibiotics that the organism is sensitive to I would leave his catheter in for at least 2 weeks to let the swelling of the prostate subside otherwise I think he is going to have problems voiding He should follow-up with Dr. Mendoza in our office in 2 weeks for a voiding trial I did discuss adding a 5 alpha reductase to his medical regimen along with his Uroxatral He would rather hold off on any additional medications since he said prior to the infection he was really not having any voiding difficulties.
[2016-12-15 11:43] VITALS: BP 140/68; PULSE 68; TEMP 36.6; O2SAT 94
[2016-12-15] MEDS ORDERED: NURSING VERBAL MED ORDER ONE (12:00)
[2016-12-15] MEDS: CEFTRIAXONE SOD INJ 1 GM in DEXTROSE 5% ADD-VANTAGE 50ML 50 ML IV SCH (12:02)
[2016-12-15] MEDS ORDERED: SULF800T23 PO (12:21)
[2016-12-15] MEDS ORDERED: TAMS0.4C38 PO (12:29)
[2016-12-15] MEDS ORDERED: FINA5TAB PO (12:33)
--- NOTE | 2016-12-15 12:33 | Discharge Instructions ---
Discharge Instructions Admission Reason for Admission: UTI Discharge Discharge Diagnosis / Problem: UTI, Probable Prostatitis, Urinary Retention Discharge Goals Goal(s): Improve disease control Activity Recommendations Activity Limitations: resume your previous activity Please follow up with Dr. Mendoza within 2 weeks - Please call to make appointment. You will continue to have blair catheter until evaluated by Dr. Mendoza in his office. If you have any problems with blair catheter - Please call his office. . Current Hospital Diet Patient's current hospital diet: Regular Diet Discharge Diet Recommended Diet: Low Fat Diet Pending Studies Studies pending at discharge: no Medical Emergencies . Who to Call and When: Medical Emergencies: If at any time you feel your situation is an emergency, please call 911 immediately. . Non-Emergent Contact Non-Emergency issues call your: Primary Care Provider, Urologist . . "Provider Documentation" section prepared by Deloris Cunningham. VTE Core Measure Inpt VTE Proph given/why not?: Enoxaparin (Lovenox)SQ
--- NOTE | 2016-12-15 17:34 | Discharge Summary ---
Discharge Summary Admission Date: Dec 13, 2016 at 15:05 Discharge Date: Dec 15, 2016 Discharge Disposition: Home Principal Diagnosis: UTI Problems/Secondary Diagnoses: BPH Acute renal failure Immunizations: Have You Had Influenza Vaccine: Yes History of Tetanus Vaccine?: Yes History of Pneumococcal: Yes History of Hepatitis B Vaccine: No Consultations: Urologist - [facility] [place] Medication Reconciliation New Medications: Finasteride (Proscar) 5 Mg Tab 1 TAB PO DAILY for 30 Days, #30 TAB 1 Refill Sulfa/Trimethoprim (Bactrim Ds 800MG/160MG) Tab 1 TAB PO BID for 7 Days, #14 TAB Continued Medications: Alfuzosin Hcl (Uroxatral) 10 Mg Tab 10 MG PO DAILY, TAB Aspirin (Aspirin 81) 81 Mg Tab 81 TAB PO DAILY Cholecalciferol (D 1000) 1,000 Unit Cap 1000 UNITS PO DAILY Multivitamin (Multivitamin) Tab 1 TAB PO DAILY, TAB Omeprazole (Prilosec) 20 Mg Capcr 40 MG PO DAILY, CAP Simvastatin (Zocor) 20 Mg Tab 20 MG PO 2XWK, TAB Discharge Exam Review of Systems: Constitutional: No fever Respiratory: No shortness of breath Cardiovascular: No chest pain Abdomen: No nausea, No pain, No vomiting Physical Exam: General Appearance: no apparent distress Respiratory/Chest: lungs clear, no respiratory distress Cardiovascular: regular rate, rhythm Abdomen / GI: normal bowel sounds, non tender, soft, + pertinent finding ( blair in place) Neurologic/Psychiatric: alert, oriented x 3 Skin: warm/dry Hospital Course 71 year old male with BPH presented with increased urinary frequency , urgency, dysuria which started about 2 days ago. He also had fever of about 102 F with chills and noticed that he had lower abdominal pressure and decreased UO and was slightly nauseous but denied vomiting/diarrhea/constipation. In the ER evaluated - noted to have UTI and early sepsis and admitted Started on IV antibiotics - IV rocephin and IV fluids. Urine culture grew [place] sensitive E coli. Later noted to have urinary retention - Blair placed - drained 800ml. Urology consulted. Continued alfuzosin. Added proscar on discharge. To have voiding trial in 2 wks as outpatient. Also had elevated creatinine 1.6 on admission, baseline 1.2 Back to normal after IV fluid hydration. Renal ultrasound with no sign of hydronephrosis. Noted to have low TSH in ER. Free T4 normal. Likely euthyroid sick syndrome sec to acute infection Total Time Spent: Greater than 30 minutes This includes examination of the patient, discharge planning, medication reconciliation, and communication with other providers. Discharge Instructions Please refer to the electronic Patient Visit Report (Discharge Instructions) for additional information. Additional Copies To Gildardo Galdamez M.D.
[2017-01-24] MEDS ORDERED: FINA5TAB PO (14:11)
[2017-02-04] MEDS ORDERED: OXYC-57 PO (09:08)
[2017-02-04] MEDS ORDERED: CIPR-255 PO (09:08)
[2017-02-04] MEDS ORDERED: PHEN-775 PO (09:08)
== END 2016-12-15 14:11 | disposition home or self-care (01) | DRG 872 ==
LOC: ENRESERVTM → ENRESERVDT → C.EDB 10:21 → C.MED 15:05 → EDBEDREQ 15:15
PROVIDERS: ADMIT Family Medicine; ATTEND Family Medicine
DX: A41.9 Sepsis, unspecified organism (principal); N39.0 Urinary tract infection, site not specified; N17.9 Acute kidney failure, unspecified; B96.20 Unspecified Escherichia coli [E. coli] as the cause of diseases classified elsewhere; R33.8 Other retention of urine; E07.81 Sick-euthyroid syndrome; N40.1 Benign prostatic hyperplasia with lower urinary tract symptoms; N41.9 Inflammatory disease of prostate, unspecified; K21.9 Gastro-esophageal reflux disease without esophagitis; E78.00 Pure hypercholesterolemia, unspecified; Z51.81 Encounter for therapeutic drug level monitoring; Z79.899 Other long term (current) drug therapy; Z79.82 Long term (current) use of aspirin; Z87.440 Personal history of urinary (tract) infections; Z82.49 Family history of ischemic heart disease and other diseases of the circulatory system

== ENCOUNTER 2017-01-01 23:04 | Emergency (ER) | payer BC, OTHER ==
[~2017-01-01] VITALS: Ht 193 cm; Wt 90.2 kg
[~2017-01-01 23:04] MED LIST changes: +CHOL100041 PO; +FINA5TAB PO; -OMEP40CA PO; +PRLSR20 PO
[2017-01-01 23:06] VITALS: BP 150/87; PULSE 78; TEMP 36.9; O2SAT 95; Ht 193 cm; Wt 90.2 kg
[2017-01-01] MEDS ORDERED: LIDOCAINE HCL 2% JELLY 30 ML TUBE EXT ONE (23:28)
--- NOTE | 2017-01-01 23:54 | EMERGENCY ROOM VISIT NOTE ---
History Report prepared by Kelly: Titi Marcano Under the Supervision of: Dr. Joey Merida D.O. First contact with patient: 23:25 Chief Complaint: UNABLE TO VOID Stated Complaint: URINARY RETENTION Nursing Triage Summary: pt c/o urinary retention since last night, states was seen here and admitted 3 weeks ago for retention and had a catheter placed but had it removed on saturday, states everythign was fine till last night History of Present Illness The patient is a 71 year old male who presents to the Emergency Room with complaints of worsening urinary retention starting yesterday. The patient states that he had a Nickerson catheter in for 14 days, and it was taken out yesterday. He states that he passed the voiding test, and he was voiding yesterday, however it go worse throughout the day. He states that today he has not been able to go, and he is feeling some abdominal pressure. The patient states that this is similar to the same thing that happened 7 years ago. He states that he has been having some stomach contractions, but nothing is being voided. Pt denies headache, change in vision, fevers, chest pain, shortness of breath, nausea, vomiting, and diarrhea. The patient admitted here December 13, and he was discharged with the Nickerson catheter. Source of History: patient Onset: yesterday Position: other (global) Quality: other (urinary retatniton) Timing: worsening Associated Symptoms: No fevers Review of Systems See HPI for pertinent positives & negatives. A total of 10 systems reviewed and were otherwise negative. Past Medical & Surgical Medical Problems: (1) HELADIO (acute kidney injury) (2) UTI (urinary tract infection) Family History Cancer Hypertension Lung disease Social History Smoking Status: Never Smoker Marital Status: single Occupation Status: retired Current/Historical Medications Scheduled Alfuzosin Hcl (Uroxatral), 10 MG PO DAILY Aspirin (Aspirin 81), 81 TAB PO DAILY Cholecalciferol (D 1000), 1,000 UNITS PO DAILY Finasteride (Proscar), 1 TAB PO DAILY Multivitamin (Multivitamin), 1 TAB PO DAILY Omeprazole (Prilosec), 40 MG PO DAILY Simvastatin (Zocor), 20 MG PO 2XWK Allergies Coded Allergies: No Known Allergies (Unverified , NONE, 01/02/17) Physical Exam Vital Signs Date Time Temp Pulse Resp B/P Pulse Ox O2 Delivery O2 Flow Rate FiO2 01/01/17 23:06 36.9 78 20 150/87 95 Room Air Physical Exam GENERAL: Sitting up in bed, alert, well appearing, well nourished, no distress, non-toxic EYE EXAM: normal conjunctiva OROPHARYNX: mucous membranes are moist LUNGS: Clear to auscultation. Normal chest wall mechanics HEART: no murmurs, S1 normal and S2 normal ABDOMEN: Minimal tenderness in the suprapubic region. Abdomen soft, normo- active bowel sounds, no masses, no rebound or guarding. : Normal external genitalia. Circumcised. Mild erythema around the urethral meatus. UPPER EXTREMITIES: upper extremities are grossly normal. LOWER EXTREMITIES: No pitting edema. NEURO EXAM: Normal sensorium Medical Decision & Procedures Laboratory Results Test 01/01/17 23:40 Urine Color YELLOW Urine Appearance CLEAR (CLEAR) Urine pH 5.5 (4.5-7.5) Urine Specific [place] 1.004 (1.000-1.030) Urine Protein NEG (NEG) Urine Glucose (UA) NEG (NEG) Urine Ketones NEG (NEG) Urine Occult Blood NEG (NEG) Urine Nitrite NEG (NEG) Urine Bilirubin NEG (NEG) Urine Urobilinogen NEG (NEG) Urine Leukocyte Esterase NEG (NEG) Urine WBC (Auto) 0 /hpf (0-5) Urine RBC (Auto) 0-4 /hpf (0-4) Urine Hyaline Casts (Auto) 0 /lpf (0-5) Urine Epithelial Cells (Auto) 0-5 /lpf (0-5) Urine Bacteria (Auto) NEG (NEG) Laboratory results per my review. Medications Administered Medications (Trade) Dose Ordered Sig/Willaim Route Start Time Stop Time Status Last Admin Dose Admin Lidocaine HCl (Xylocaine Jelly 2%) 30 ml STK-MED ONCE EXT 01/01/17 23:28 01/01/17 23:31 DC 01/01/17 23:28 30 ML ED Course ED COURSE: Vital signs were reviewed and showed normal vitals The patients medical record was reviewed The above diagnostic studies were performed and reviewed. ED treatments and interventions as stated above. 2325: The patient was evaluated in room A11. A complete history and physical examination was performed. 2328: Xylocaine Jelly 2% 30ml EXT 0010: Upon reevaluation, the patient is feeling completely better, and 700ml were voided. .I discussed my findings with the patient and he understands and agrees with the treatment plan. Based on the patients age, coexisting illnesses, exam and lab findings the decision to treat as an outpatient was made. The patient remained stable while under my care. The patient appeared well at the time of discharge. Medical Decision Differential diagnoses: UTI, urinary retention, BPH Patient is a 71-year-old male who presents the ER for decreased urine output for the past 24 hours. He was recently admitted and discharged over 2 weeks ago from hospital with urinary retention and UTI. The Nickerson was removed yesterday in clinic at [facility]'s urology office. He passed his voiding trial. He notes that since yesterday his urine outputs have decreased. No other complaints at this time. Bladder scan showed over 600 MLS. Nickerson was inserted and 700 MLS was obtained. Patient had complete resolution of symptoms. UA was clean without signs of infection. He currently has an appointment with urology tomorrow at 9 AM. I encouraged him to keep this appointment as he will need follow-up for removal of the Nickerson. Patient has had this in place for the last 2 weeks and understands the risk of having a Nickerson in place. Discussed with Pt concerning signs and symptoms to watch out for. Pt was instructed to follow up with their PCP and discussed with the patient their option to return to the ED at anytime for persistent or worsening symptoms. The appropriate anticipatory guidance and out-patient management, including indications for return to the emergency department, were explained at length to the patient and understood. Impression Primary Impression: Urinary retention Scribe Attestation The scribe's documentation has been prepared under my direction and personally reviewed by me in its entirety. I confirm that the note above accurately reflects all work, treatment, procedures, and medical decision making performed by me. Departure Information Dispostion Home / Self-Care Referrals Gildardo Galdamez M.D. (PCP) Forms HOME CARE DOCUMENTATION FORM, IMPORTANT VISIT INFORMATION, WORK / SCHOOL INSTRUCTIONS Patient Instructions ED Catheter Care Nickerson, ED Retention Urinary Male, [facility] Additional Instructions Please follow up with your urologist with in the next 24 hours. Any worsening of your symptoms, please return to the ED immediately. This includes fevers greater than 100.4, worsening the pain, no drainage of urine into your Nickerson bag , or any other concerning signs or symptoms from your standpoint. You must follow up with your urologist to have the Nickerson removed at their discretion. You must be seen for this within the week as there is always a risk of infection with a Nickerson in place.
[2017-01-01 23:57] LABS: MANUAL MICROSCOPIC REQUIRED? NO; REVIEW REQ? NO; URINE APPEARANCE CLEAR (CLEAR); URINE BILIRUBIN NEG (NEG); URINE COLOR YELLOW; URINE EPITHELIAL CELL AUTO 0-5 /lpf (0-5); URINE NITRITE NEG (NEG); URINE PH 5.5 (4.5-7.5); URINE SPECIFIC GRAVITY 1.004 (1.000-1.030); UROBILINOGEN NEG (NEG); ZZURINE CULT IF INDIC CATH NO
[2017-01-24] MEDS ORDERED: FINA5TAB PO (14:11)
[2017-02-04] MEDS ORDERED: PHEN-775 PO (09:08)
[2017-02-04] MEDS ORDERED: CIPR-255 PO (09:08)
[2017-02-04] MEDS ORDERED: OXYC-57 PO (09:08)
== END 2017-01-02 00:29 | disposition home or self-care (01) ==
LOC: C.EDB 23:05 → C.EDA 01-02 00:29
DX: R33.9 Retention of urine, unspecified (principal); Z87.440 Personal history of urinary (tract) infections; Z79.82 Long term (current) use of aspirin; Z79.899 Other long term (current) drug therapy; Z80.9 Family history of malignant neoplasm, unspecified; Z82.49 Family history of ischemic heart disease and other diseases of the circulatory system

== ENCOUNTER 2017-02-04 08:35 | Day surgery (SDC) | payer BC ==
[2017-01-24 14:12] VITALS: BMI 24.0
--- NOTE | 2017-01-24 14:50 | PAT Medication Instructions ---
Service Date Jan 24, 2017. Current Home Medication List Alfuzosin Hcl (Uroxatral), 10 MG PO QPM Aspirin (Aspirin 81), 81 TAB PO QAM Cholecalciferol (D 1000), 1,000 UNITS PO QAM Finasteride (Proscar), 5 MG PO QAM Multivitamin (Multivitamin), 1 TAB PO QAM Omeprazole (Prilosec), 40 MG PO QAM Simvastatin (Zocor), 20 MG PO 2XWK Medication Instructions For Your Scheduled Surgery Aspirin (Aspirin 81), 81 TAB PO QAM (check with surgeon for instructions) Simvastatin (Zocor), 20 MG PO 2XWK (/Sat) - Continue as directed - Hold the following medications the morning of surgery: Multivitamin (Multivitamin), 1 TAB PO QAM Finasteride (Proscar), 5 MG PO QAM Cholecalciferol (D 1000), 1,000 UNITS PO QAM - Take the following medications the morning of surgery with a sip of water: Omeprazole (Prilosec), 40 MG PO QAM - Take the following medications as scheduled the night before surgery: Alfuzosin Hcl (Uroxatral), 10 MG PO QPM If you have any questions please call us at [phone] (Marian Dias PA-C) or [phone] or [phone]
--- NOTE | 2017-01-24 15:20 | DIAGNOSTIC IMAGING REPORT ---
CHEST PREADMISSION(PA/LAT) HISTORY: Preop. COMPARISON: Chest 07/08/2014. FINDINGS: The lungs are mildly hyperexpanded. No focal lung consolidations. No pleural effusions. No pneumothorax. Nodular density at the left lung base is consistent with a nipple shadow. The heart is normal in size. IMPRESSION: No significant change compared to the prior study. No acute process. Electronically signed by: Marcelino Lynn M.D. 01/24/2017 3:19 PM Dictated Date/Time: 01/24/2017 3:17 PM
[2017-01-24 16:11] LABS: BASO % 0.6 %; BASO ABS # 0.03 K/uL (0-0.2); COMPLETE YES; EOS % 1.4 %; HEMATOCRIT 39.2 % (42-52); IG% 0.2 %; LYMPH % 31.7 %; LYMPH ABS # 1.64 K/uL (1.2-3.4); MEAN CELL VOLUME 94.7 fL (80-100); MEAN CORPUSCULAR HEMOGLOBIN 32.9 pg (25-34); MEAN CORPUSCULAR HGB CONC 34.7 g/dl (32-36); MEAN PLATELET VOLUME 10.3 fL (7.4-10.4); MONO % 5.6 %; NEUT % 60.5 %; PLATELET COUNT 216 K/uL (130-400); RED BLOOD COUNT 4.14 M/uL (4.7-6.1); WHITE BLOOD COUNT 5.17 K/uL (4.8-10.8)
[2017-01-24 16:15] LABS: URINE APPEARANCE CLEAR (CLEAR); URINE BILIRUBIN NEG (NEG); URINE COLOR YELLOW; URINE EPITHELIAL CELL AUTO 0-5 /lpf (0-5); URINE NITRITE NEG (NEG); URINE PH 6.5 (4.5-7.5); URINE SPECIFIC GRAVITY 1.005 (1.000-1.030); UROBILINOGEN NEG (NEG)
[2017-01-24 16:16] LABS: MANUAL MICROSCOPIC REQUIRED? NO; REVIEW REQ? NO
[2017-01-24 16:30] LABS: BUN/CREATININE RATIO 14.5 (10-20); CALCIUM 8.8 mg/dl (8.5-10.1); CREATININE 1.1 mg/dl (0.60-1.40); POTASSIUM 4.4 mmol/L (3.5-5.1)
[~2017-02-04] VITALS: Ht 190.5 cm; Wt 89.0 kg
[~2017-02-04 08:35] MED LIST changes: +ALFU10TA2 PO; -ALFU10TA30 PO; +ATROPINE SULFATE 0.1 MG/ML 5ML SYR IV PRN; +CIPROFLOXACIN / D5W 400 MG IV SCH; +EpHEDrine SULFATE INJ 50 MG/ML AMP IV PRN; +GENTAMICIN INJ 120 MG in DEXTROSE 5% 100ML 100 ML IV SCH; +LACTATED RINGER'S 1000ML 1,000 ML IV SCH; +ONDANSETRON INJ 2 MG/ML 2 ML VIAL IV PRN; +PHENYLEPHRINE 100MCG/ML 5ML SYR IV PRN
[2017-02-04] MEDS ORDERED: LIDOCAINE HCL 2% 2 ML VIAL (20MG/ML) ONE (08:51)
[2017-02-04] MEDS ORDERED: MIDAZOLAM HCL 1 MG/ML 2ML VIAL ONE (08:51)
[2017-02-04] MEDS ORDERED: PROPOFOL IV EMULSION 10 MG/ML 20 ML VIAL IV ONE (08:51)
[2017-02-04] MEDS ORDERED: FENTANYL CITRATE INJ 50 MCG/1 ML 2 ML VIAL ONE (08:51)
[2017-02-04 08:57] VITALS: BP 159/71; PULSE 68; TEMP 36.7; O2SAT 98; Ht 190.5 cm; Wt 89.0 kg
[2017-02-04] MEDS ORDERED: OXYC-57 PO (09:08)
[2017-02-04] MEDS ORDERED: CIPR-255 PO (09:08)
[2017-02-04] MEDS ORDERED: PHEN-775 PO (09:08)
--- NOTE | 2017-02-04 09:18 | History & Physical Bridge Note ---
H&P Re-Evaluation Bridge Note: I have examined the patient, reviewed the History & Physical and in the interval since the performance of the History & Physical I have noted the following changes of clinical significance: No changes noted
[2017-02-04] MEDS ORDERED: EpHEDrine SULFATE INJ 50 MG/ML AMP ONE (09:51)
[2017-02-04] MEDS ORDERED: DEXAMETHASONE SOD INJ 4 MG/ML VIAL ONE (09:51)
[2017-02-04] MEDS ORDERED: ONDANSETRON INJ 2 MG/ML 2 ML VIAL ONE (09:51)
[2017-02-04] MEDS ORDERED: GLYCOPYRROLATE INJ 0.2 MG/ML VIAL ONE (09:57)
[2017-02-04] MEDS ORDERED: BELLADONNA/OPIUM SUPP 60 MG SUPP PR ONE ×2 (10:18→10:23)
--- NOTE | 2017-02-04 10:28 | Discharge Instructions ---
Discharge Instructions Date of Service Feb 04, 2017. Admission Reason for Admission: Benign Prostatic Hypertrophy, Urine Retention Discharge Discharge Diagnosis / Problem: BPH, retention s/p TURP and GLTURP Discharge Goals Goal(s): Improve function, Improve disease control, Therapeutic intervention Activity Recommendations Activity Limitations: per Instructions/Follow-up section Lifting Limitations: no more than 25 pounds, gradually increase as tolerated ( over a week) Exercise/Sports Limitations: rest today, gradually increase as tolerated (over a week) May Resume Sexual Activity: after two weeks Shower/Bathe: tomorrow (no tub bath with catheter in place) Catheter to gravity drainage as instructed Bleeding in and around the catheter is expected . Instructions / Follow-Up Instructions / Follow-Up Catheter removal appointment on 02/07/17 as scheduled. Call office with questions. Discharge Diet Recommended Diet: Regular Diet (good fluid intake) Procedures Procedures Performed: TUR median lobe, GLTURP Pending Studies Studies pending at discharge: no Medical Emergencies . Who to Call and When: Medical Emergencies: If at any time you feel your situation is an emergency, please call 911 immediately. . Non-Emergent Contact Non-Emergency issues call your: Urologist Call Non-Emergent contact if: you have a fever, temperature is above 101, your pain is not controlled, your pain is worsening, your pain is unusual for you, your pain is concerning you, you have any medication questions . . "Provider Documentation" section prepared by Rancho Mendoza. VTE Core Measure Inpt VTE Proph given/why not?: SCD's [place] Drug Monitoring Program Search Results: patient reviewed within database, no issues identified
[2017-02-04] MEDS ORDERED: OXYCODONE/ACETAMINOPHEN 5-325 TAB PO PRN (10:30)
[2017-02-04] MEDS ORDERED: PHENAZOPYRIDINE HCL 100 MG TAB PO PRN (10:30)
--- NOTE | 2017-02-04 10:36 | [facility] Post Operative Brief Note ---
Immediate Operative Summary Operative Date Feb 04, 2017. Pre-Operative Diagnosis Benign Prostatic Hyperplasia with Urinary Retention Post-Operative Diagnosis Benign Prostatic Hyperplasia with Urinary Retention Procedure(s) Performed TUR median lobe, GLTURP Surgeon Dr. Rancho Mendoza Artist'S Representative Surgeon(s) None Estimated Blood Loss 10ml Findings Open fossa after completion with excellent hemostasis, 103K J used with GLTURP Specimens A. Prostate Chips Drains 22 fr 10 cc H2O Anesthesia GALMA Complication(s) None Disposition Recovery Room / PACU
[2017-02-04] MEDS: HYDROmorphone INJ 2 MG/ML SYR/VIAL IV PRN ×2 (10:45→10:53)
[2017-02-04 11:25] VITALS: BP 115/62; PULSE 74; TEMP 36.6; O2SAT 97
--- NOTE | 2017-02-04 11:44 | Anesthesiology Progress Note ---
Anesthesia Post Op Note Date & Time Feb 04, 2017 at 11:44 Vital Signs Pain Intensity: 4 Vital Signs Past 12 Hours Date Time Temp Pulse Resp B/P Pulse Ox O2 Delivery O2 Flow Rate FiO2 02/04/17 11:17 36.2 02/04/17 11:15 121/66 02/04/17 11:12 62 16 97 02/04/17 11:12 62 16 02/04/17 11:10 131/69 02/04/17 11:07 68 18 95 02/04/17 11:07 69 18 02/04/17 11:06 74 17 98 02/04/17 11:06 74 17 02/04/17 11:01 69 17 97 02/04/17 11:01 67 17 02/04/17 11:00 131/61 02/04/17 10:56 73 18 02/04/17 10:56 72 18 100 02/04/17 10:55 80 18 02/04/17 10:55 81 18 137/73 100 02/04/17 10:50 67 18 123/73 100 02/04/17 10:50 66 18 02/04/17 10:45 70 21 120/74 100 02/04/17 10:45 70 21 02/04/17 10:40 74 13 02/04/17 10:40 74 13 115/71 100 02/04/17 10:35 36.6 69 12 112/67 100 Mask 10 02/04/17 10:35 66 14 02/04/17 10:35 67 14 112/67 100 02/04/17 08:57 36.7 68 18 159/71 98 Room Air Notes Mental Status: alert / awake / arousable, participated in evaluation Pt Amnestic to Procedure: Yes Nausea / Vomiting: adequately controlled Pain: adequately controlled Airway Patency, RR, SpO2: stable & adequate BP & HR: stable & adequate Hydration State: stable & adequate Anesthetic Complications: no major complications apparent
[2017-02-04 11:56] VITALS: BP 133/61; PULSE 69; TEMP 36.6; O2SAT 97
--- NOTE | 2017-02-04 14:09 | OPERATIVE REPORT ---
DATE OF OPERATION: 02/04/2017 PREOPERATIVE DIAGNOSIS: Benign prostatic hypertrophy with urinary retention. POSTOPERATIVE DIAGNOSIS: Same. PROCEDURE: Transurethral resection of medium lobe and GreenLight vaporization of the prostate gland. SURGEON: Rancho Mendoza MD PAINT TECHNICIAN: None. ANESTHESIA: General anesthesia with laryngeal mask. COMPLICATIONS: None. FINDINGS: Open prostatic fossa with excellent hemostasis after completion of case, 103,000 joules of energy used with GreenLight TUR. DRAINS LEFT IN PLACE: Include a 22-Gabonese Nickerson catheter with 10 mL of sterile water in the balloon. SPECIMENS SENT TO PATHOLOGY: Prostate chips for pathologic analysis. ESTIMATED BLOOD LOSS: 100 mL. BRIEF HISTORY OF PRESENT ILLNESS: Mr. Arnold is a pleasant 72-year-old male with history of longstanding voiding symptoms who went into urinary retention in the recent past. Office cystoscopy demonstrated an obstructive median lobe as well as lateral lobe hypertrophy. Seeing his ongoing difficulties, he has decided upon a transurethral vaporization of his prostate gland with GreenLight laser to manage his disease. Seeing his large median lobe element, a transurethral resection of this portion will be complete. Please see H\T\P for further details. The patient was provided with intravenous ciprofloxacin and gentamicin for antibiotic coverage preoperatively. SCDs were used for DVT prophylaxis. DESCRIPTION OF PROCEDURE: The patient was properly identified and brought to the operative suite. After identification of appropriate consent on the chart, general anesthesia with laryngeal mask was initiated and the patient was prepped and draped in standard fashion for this procedure. time study clerk-out procedure was followed. A 24-Gabonese resectoscope was passed into the bladder under direct visualization with the visual obturator. Median lobe and lateral lobe hypertrophy as previously noted were appreciated. The ureteral orifices were noted to be well removed from the bladder neck and in the normal anatomic position effluxing clear yellow urine. Grade 2-3 trabeculation of the bladder was present. No intravesical papillary lesions, tumors or calculi were noted. A median lobe was resected down to the level of the trigone of the bladder. Prostate chips were irrigated free of the bladder and sent for pathologic analysis. After this was complete, coagulation cautery was used as necessary for hemostasis. Ureteral orifices were noted to be free of injury throughout the case and at the completion as well. The resectoscope was then removed and GreenLight laser scope was advanced using a visual obturator again. Using a side fire GreenLight laser scope at amplitudes between 80 and 140 circumferential vaporization of the prostate gland including relaxing incisions at the 5 and 7 o'clock position were made. The lateral lobes were resected as well as the small amount of remaining median lobe tissue. Great care was taken during both procedures to avoid any resection past the level of the verumontanum. After this was complete, an excellently open prostate, visually unobstructed with excellent hemostasis was appreciated. Bladder was noted to be free of any prostate chips or foreign bodies. Bladder was partially distended and the resectoscope was removed. A 22-Gabonese Nickerson catheter was placed with return of clear yellow irrigant and 10 mL of sterile water in the balloon. Anesthesia was reversed. The patient was transferred to recovery room in stable condition after providing a belladonna and opium suppository for additional analgesia. FOLLOWUP CARE: The patient will be discharged home with a Nickerson catheter in place. Outpatient trial of void is confirmed. He is provided with a prescription for ciprofloxacin and Percocet as well as Pyridium for postoperative analgesia and antibiotic coverage. The patient is instructed to contact our service should he note any fevers, chills, nausea, vomiting or other significant difficulties in the postoperative period. I attest to the content of the Intraoperative Record and any orders documented therein. Any exceptio ns are noted below.
== END 2017-02-04 12:36 | disposition home or self-care (01) ==
LOC: C.ACU 08:35
PROVIDERS: ATTEND Urology
DX: N40.1 Benign prostatic hyperplasia with lower urinary tract symptoms (principal); R33.9 Retention of urine, unspecified; I10 Essential (primary) hypertension; E78.5 Hyperlipidemia, unspecified; G62.9 Polyneuropathy, unspecified; E55.9 Vitamin D deficiency, unspecified; K22.70 Barrett's esophagus without dysplasia; D64.9 Anemia, unspecified; Z80.1 Family history of malignant neoplasm of trachea, bronchus and lung; Z80.42 Family history of malignant neoplasm of prostate; Z82.49 Family history of ischemic heart disease and other diseases of the circulatory system; Z82.5 Family history of asthma and other chronic lower respiratory diseases

== ENCOUNTER → 2017-02-21 | Outpatient (CLI) | payer BC ==
[~2017-02-21] MED LIST changes: -ATROPINE SULFATE 0.1 MG/ML 5ML SYR IV PRN; +CIPR-255 PO; -CIPROFLOXACIN / D5W 400 MG IV SCH; -EpHEDrine SULFATE INJ 50 MG/ML AMP IV PRN; -GENTAMICIN INJ 120 MG in DEXTROSE 5% 100ML 100 ML IV SCH; -LACTATED RINGER'S 1000ML 1,000 ML IV SCH; -ONDANSETRON INJ 2 MG/ML 2 ML VIAL IV PRN; +OXYC-57 PO; -PHENYLEPHRINE 100MCG/ML 5ML SYR IV PRN
[2017-02-21 13:32] LABS: BASO % 0.4 %; BASO ABS # 0.02 K/uL (0-0.2); COMPLETE YES; EOS % 1.6 %; HEMATOCRIT 41.7 % (42-52); IG% 0.2 %; LYMPH % 32.1 %; MEAN CELL VOLUME 95.2 fL (80-100); MEAN CORPUSCULAR HEMOGLOBIN 32.4 pg (25-34); MEAN CORPUSCULAR HGB CONC 34.1 g/dl (32-36); MEAN PLATELET VOLUME 10.6 fL (7.4-10.4); NEUT % 58.7 %; PLATELET COUNT 246 K/uL (130-400); RED BLOOD COUNT 4.38 M/uL (4.7-6.1)
[2017-02-21 14:16] LABS: CALCIUM 9.3 mg/dl (8.5-10.1)
[2017-02-21 14:19] LABS: ALT/SGPT 24 U/L (12-78); BLOOD UREA NITROGEN 15 mg/dl (7-18); BUN/CREATININE RATIO 12.8 (10-20); CARBON DIOXIDE 28 mmol/L (21-32); CHLORIDE 109 mmol/L (98-107); CHOLESTEROL 223 mg/dl (0-200); GLUCOSE 103 mg/dl (70-99); POTASSIUM 4.1 mmol/L (3.5-5.1); SODIUM 143 mmol/L (136-145); TRIGLYCERIDES 174 mg/dl (0-150); VERY LOW DENSITY LIPOPROT CALC 35 mg/dl
[2017-02-21 14:22] LABS: ALB/GLOB RATIO 1.2 (0.9-2); ALKALINE PHOSPHATASE 83 U/L (45-117); AST/SGOT 22 U/L (15-37); CHOLESTEROL/HDL RATIO 3.8; HDL CHOLESTEROL 59 mg/dl; LDL CHOLESTEROL CALCULATED 129 mg/dl
[2017-02-21 14:23] LABS: URINE PROTIEN/CREAT RATIO 0.3 (0-0.2); URINE TOTAL PROTEIN 59.8 mg/dl (0-11.9)
== END | disposition home or self-care (01) ==
LOC: C.LABBC 09:29
PROVIDERS: ATTEND Internal Medicine
DX: N18.2 Chronic kidney disease, stage 2 (mild) (principal); E78.5 Hyperlipidemia, unspecified; E55.9 Vitamin D deficiency, unspecified

== ENCOUNTER → 2017-08-20 | Outpatient (CLI) | payer BC ==
[~2017-08-20] MED LIST changes: -ALFU10TA2 PO; +ALFU10TA30 PO; -OXYC-57 PO
[2017-08-20 13:23] LABS: BASO % 0.5 %; BASO ABS # 0.02 K/uL (0-0.2); COMPLETE YES; EOS % 3.1 %; HEMATOCRIT 41.8 % (42-52); LYMPH % 39.5 %; LYMPH ABS # 1.66 K/uL (1.2-3.4); MEAN CELL VOLUME 94.4 fL (80-100); MEAN CORPUSCULAR HEMOGLOBIN 33.2 pg (25-34); MEAN CORPUSCULAR HGB CONC 35.2 g/dl (32-36); MEAN PLATELET VOLUME 10.6 fL (7.4-10.4); MONO % 7.1 %; NEUT % 49.8 %; PLATELET COUNT 223 K/uL (130-400); RED BLOOD COUNT 4.43 M/uL (4.7-6.1)
[2017-08-20 14:15] LABS: ALT/SGPT 24 U/L (12-78); AST/SGOT 21 U/L (15-37); BLOOD UREA NITROGEN 15 mg/dl (7-18); BUN/CREATININE RATIO 12.3 (10-20); CALCIUM 8.9 mg/dl (8.5-10.1); CARBON DIOXIDE 27 mmol/L (21-32); CHLORIDE 108 mmol/L (98-107); CHOLESTEROL 193 mg/dl (0-200); CREATININE 1.24 mg/dl (0.60-1.40); GLUCOSE 97 mg/dl (70-99); POTASSIUM 4.2 mmol/L (3.5-5.1); SODIUM 140 mmol/L (136-145)
[2017-08-20 14:20] LABS: CHOLESTEROL/HDL RATIO 3.5; HDL CHOLESTEROL 55 mg/dl; LDL CHOLESTEROL CALCULATED 113 mg/dl; TRIGLYCERIDES 127 mg/dl (0-150); VERY LOW DENSITY LIPOPROT CALC 25 mg/dl
[2017-08-20 15:31] LABS: RATIO 9.8 mcg/mg (0-30.0)
== END | disposition home or self-care (01) ==
LOC: C.LABBC 09:44
PROVIDERS: ATTEND Internal Medicine
DX: N18.3 Chronic kidney disease, stage 3 (moderate) (principal); E78.5 Hyperlipidemia, unspecified; G62.9 Polyneuropathy, unspecified

== ENCOUNTER → 2017-09-25 | Outpatient (CLI) | payer BC ==
[~2017-09-25] MED LIST changes: +ALFU10TA2 PO; -ALFU10TA30 PO
== END | disposition home or self-care (01) ==
LOC: C.LABBC 11:11
PROVIDERS: ATTEND Urology
DX: N40.2 Nodular prostate without lower urinary tract symptoms (principal)

== ENCOUNTER → 2018-02-25 | Outpatient (CLI) | payer BC ==
[2018-02-25 10:48] LABS: BASO % 0.7 %; BASO ABS # 0.03 K/uL (0-0.2); EOS % 2.8 %; EOS ABS # 0.12 K/uL (0-0.5); HEMATOCRIT 40.8 % (42-52); IG# 0.01 K/uL (0.00-0.02); LYMPH % 42.2 %; LYMPH ABS # 1.84 K/uL (1.2-3.4); MEAN CELL VOLUME 94.7 fL (80-100); MEAN CORPUSCULAR HEMOGLOBIN 32.5 pg (25-34); MEAN CORPUSCULAR HGB CONC 34.3 g/dl (32-36); MEAN PLATELET VOLUME 10.7 fL (7.4-10.4); MONO % 8.7 %; MONO ABS # 0.38 K/uL (0.11-0.59); NEUT % 45.4 %; NEUT ABS # 1.98 K/uL (1.4-6.5); PLATELET COUNT 217 K/uL (130-400); RED CELL DISTRIBUTION WIDTH CV 12.2 % (11.5-14.5); RED CELL DISTRIBUTION WIDTH SD 41.8 fL (36.4-46.3); WHITE BLOOD COUNT 4.36 K/uL (4.8-10.8)
[2018-02-25 11:01] LABS: AST/SGOT 27 U/L (15-37); BLOOD UREA NITROGEN 20 mg/dl (7-18); CALCIUM 8.8 mg/dl (8.5-10.1); CARBON DIOXIDE 27 mmol/L (21-32); CREATININE 1.34 mg/dl (0.60-1.40); GLUCOSE 93 mg/dl (70-99); POTASSIUM 4.1 mmol/L (3.5-5.1); SODIUM 140 mmol/L (136-145)
[2018-02-25 11:08] LABS: CHOLESTEROL 161 mg/dl (0-200); LDL CHOLESTEROL CALCULATED 83 mg/dl
== END | disposition home or self-care (01) ==
LOC: C.LABBC 08:52
PROVIDERS: ATTEND Internal Medicine
DX: D64.9 Anemia, unspecified (principal); E78.5 Hyperlipidemia, unspecified; N18.2 Chronic kidney disease, stage 2 (mild)

== ENCOUNTER 2020-05-28 06:52 | Inpatient (IN) ==
[2020-05-28] MEDS ORDERED: ACETAMINOPHEN 1,000 MG/100 ML VIAL IV STA (07:15)
[2020-05-28] MEDS ORDERED: SODIUM CHLORIDE 0.9% 500 ML IV SCH (07:15)
--- NOTE | 2020-05-28 07:25 | Emergency Department Note ---
Impression & Plan Enteritis, Small bowel obstruction, partial ED Provider Note CHIEF COMPLAINT: Abdominal pain HISTORY OF PRESENTING ILLNESS: This is a 75-year-old male who presents to the emergency department by private vehicle with complaint of abdominal pain that started last night around 7 PM. The patient states he had just eaten dinner shortly before that when he first noticed the pain. The patient does note that he had corn on the cob, strawberries and blueberries, and a lot more fruit than usual. He states the pain came on gradually, seem to resolve for a few hours, then came back again later in the evening and kept him up most of the night. He describes the pain as pressure and aching, in the mid abdomen and slightly to the left, constant, and rates the pain a 7/10. He did not try anything for his pain, stating he was hoping it would just go away after a good night sleep. He denies any associated nausea, vomiting, or diarrhea. His last bowel movement was yesterday, and he states he had a small bowel movement this morning as well that was normal. He denies any bloody or black stools. He denies any fevers or chills. He denies any history of similar pain. He does note a history of appendectomy when he was 14 years old, no other abdominal surgeries. He denies any chest pain, shortness of breath, cough or URI symptoms. He denies any recent travel or sick contacts concerning for COVID-19. REVIEW OF SYSTEMS: A complete 10 point review of systems was reviewed with the patient with pertinent positives and negatives as per history of present illness. All else were negative. PAST MEDICAL HISTORY: Hyperlipidemia, GERD, stage II chronic kidney disease, Correa esophagus SOCIAL HISTORY: Lives at home, he denies tobacco use, denies alcohol use ALLERGIES: No known allergies PHYSICAL EXAM: CONSTITUTIONAL: Pleasant and cooperative. Nontoxic-appearing and in no acute di stress. Well appearing and well nourished. HEENT: Normocephalic, atraumatic. NECK: Supple, full active range of motion without discomfort. RESPIRATORY: Clear to auscultation bilaterally with no wheezing, crackles, rhonchi or stridor. Equal expansion bilaterally. CARDIOVASCULAR: Regular rate and rhythm with no murmurs, rubs or gallops. Normal peripheral perfusion. No edema. GASTROINTESTINAL: Tender to palpation in the left lower quadrant of the abdomen, no rebound tenderness or guarding. Abdomen is otherwise nontender, soft and nondistended. No palpable masses or HSM. Bowel sounds present in all quadrants. No CVA tenderness bilaterally. MUSCULOSKELETAL: Full range of motion of all joints without discomfort. INTEGUMENTARY: No rash or other significant dermatologic conditions noted. NEUROLOGIC: Alert and oriented X 4 with normal affect. Normal strength and sensation in all 4 extremities. Normal speech. Normal gait observed. ED COURSE AND MEDICAL DECISION MAKING: CC: Patient presenting with complaint of abdominal pain DIFFERENTIAL DIAGNOSIS: Includes, but not limited to diverticulitis, diverticulosis, intra-abdominal abscess, mesenteric ischemia, pancreatitis, small bowel obstruction, infectious colitis, gastroenteritis, ileus, among others. INTERPRETATION OF LABS: No leukocytosis, no anemia, normal platelets, no significant electrolyte abnormalities, normal renal function, normal liver enzymes and lipase. Lactate within normal limits. IMAGING: ABDOMEN AND PELVIS CT WITH IV CONTRAST CT DOSE: 560.23 mGy.cm HISTORY: Acute left lower quadrant abdominal pain LLQ pain TECHNIQUE: Multiaxial CT images of the abdomen and pelvis were performed following the IV administration of 94 cc of Optiray 320, A dose lowering technique was utilized adhering to the principles of ALARA. COMPARISON STUDY: MRI pelvis 07/31/2011. FINDINGS: Study is mildly motion degraded. The imaged lung bases are generally clear. No pneumatosis or pneumoperitoneum. Extensive coronary artery calcifications. The heart is upper limits of normal in size. No pericardial effusion. The spleen, pancreas, adrenal glands and gallbladder are unremarkable. The liver is also within normal limits. Patency of the hepatic and portal veins. The kidneys are within normal limits. Prostamegaly. Unremarkable urinary bladder. Calcified plaque the abdominal aorta without aneurysm. No adenopathy. Surgical clips are noted within the right inguinal tissues and upper scrotum. Small hiatal hernia. Trace free fluid within the dependent pelvis. 11 mm calcifications also noted within the dependent left hemipelvis. Mild fecal retention. The appendix is surgically absent. There are multiple mildly dilated and prominent air and fluid-filled loops of small bowel within the abdomen and pelvis measuring up to approximately 3 cm. No discrete transition point identified. Areas of mild wall thickening with perienteric stranding are noted as seen on image 285 series 3. Soft tissues are unremarkable. Degenerative changes of the hips, pelvis and spine. No acute fracture. Remote bilateral L5 pars defects with 12 mm anterolisthesis L5 on S1. IMPRESSION: 1. Multiple mildly dilated loops of fluid-filled small bowel with air-fluid levels are noted in addition to mild small bowel wall thickening with trace perienteric inflammatory stranding. No discrete transition point identified. Findings are suggestive of enteritis with ileus versus low-grade small bowel obstruction. Close follow-up recommended. 2. No pneumatosis or pneumoperitoneum. 3. Appendectomy. 4. Additional findings as above. EKG: Shows sinus rhythm with first-degree AV block, 60 bpm, left axis deviation, incomplete RBBB, no ST or T wave abnormalities, no ectopy, no significant change when compared to previous EKG from 12/13/2016 by my interpretation. MEDICATION RECONCILIATION: I attest that I have personally reviewed the luis ent's current medication list. INITIAL VITAL SIGNS REVIEW: I reviewed the patient's initial vital signs and interpret them as follows: T: Afebrile; BP: Hypertensive; HR: Within normal limits; RR: Within normal limits; Pulse Ox: Within normal limits on room air. Blood pressure screening: The patient was found to have an elevated blood pressure and was referred to the inpatient team for further management. MDM SUMMARY: Patient was evaluated at bedside, history and physical exam performed. Patient is alert and oriented, no acute distress, resting calmly in the stretcher. He is afebrile and nontoxic-appearing. Appears to be well-hydrated. Tenderness to palpation in the left lower quadrant of the abdomen which reproduces the patient's complaint. No acute abdomen. Cardiac monitoring: An order was placed for continuous cardiac monitoring. The monitor shows a rate of 67 bpm with normal sinus rhythm. Orders were placed at bedside for labs, UA, 500 mL IV fluid bolus for hydration, EKG, CT abdomen/pelvis with IV contrast to evaluate for abdominal pain. The patient was offered something for pain, he requested not to be given narcotics as he wishes to drive home. IV Tylenol was ordered. Patient discussed with Dr. Jara, who also evaluated the patient and agrees with my assessment, plan, and disposition. Labs and imaging reviewed as above, labs do not show any leukocytosis or significant abnormality. Liver enzymes and lipase are normal. Lactate is within normal limits. CT imaging concerning for a possible small bowel obstruction versus enteritis with ileus. No pneumatosis or pneumoperitoneum. Patient reassessed multiple times throughout ED stay, he has remained h emodynamically stable and afebrile and reports his pain is improved after the IV Tylenol. He continues to do deny any symptoms of nausea or vomiting, I do not feel an NG tube is warranted at this time. I did feel that the patient would benefit from hospital admission given the possibility of a small bowel obstruction versus ileus. I spoke on the phone with Dr. Cordero, hospitalist, who agrees to evaluate the patient for admission. The patient was updated on all results and plan for admission, he verbalized understanding was agreeable to this plan. The patient was stable at time of admission. The chart was completed utilizing [employer] Speech voice recognition software. Grammatical errors, random word insertions, pronoun errors, and incomplete sentences are an occasional consequence of this system due to software limitations, ambient noise, and hardware issues. Any formal questions or c oncerns about the content, text, or information contained within the body of this dictation should be directly addressed to the nurse practitioner for clarification. Attending Attestation: I Leonard Jara MD independently saw and evaluated this patient and agree with history and physical is otherwise documented by the nurse practitioner. See their note for full details. Patient resting in bed with mild abdominal tenderness more in the LLQ. Does not appear in distress at this time. Labs and CT questions enteritis vs SBO. Given age and persistence of symptoms, plan for obs in house. Past Med/Surg History Medical History (Updated 05/28/20 @ 13:43 by JOSE Nelson) Elevated PSA Inflamed sebaceous cyst Larynx polyp Lumbar spondylosis (Inactive) Muscle cramp, nocturnal (Inactive) Urinary frequency (Inactive) UTI (urinary tract infection) (Resolved) Vitamin D deficiency (Acute) Surgical History (Updated 02/23/20 @ 09:35 by JOSE Daugherty, MS, BUSINESS SERVICES SALES REPRESENTATIVE-C) H/O ligation of vein History of prostate biopsy S/P appendectomy S/P vasectomy Status post incision and drainage Social History Smoking Status: Former smoker Second Hand Exposure: Yes; Do You Dip or Chew Tobacco: No; Hx Alcohol Use: No Hx Substance Use: No Preferred Language: Uzbek Communication Ability: Effective Visual Impairment: No Limitations Hearing Ability: Normal Glass Vial Bending Conveyor Feeder Required: No Beliefs That Will Affect Care: None marital status: Current Living Situation: Alone current occupational status: retired Other Information That Helps Us Care for You: No Feels Safe at Home: Yes Safety Concerns: Feels Safe At This Time Dental Care, Regularly: Yes Physical Activity Frequency: 3-4 Times per Week Seatbelt Use: always Allergies Allergies Allergy/AdvReac Type Severity Reaction Status Date / Time No Known Allergies Allergy Unknown NONE Unverified 05/28/20 07:35 Home Meds Home Medications Medication Instructions Recorded Confirmed omeprazole 40 mg capsule,delayed 40 mg PO QAM 08/19/19 05/28/20 release cholecalciferol (vitamin D3) 50 2,000 units PO QAM 12/11/19 05/28/20 mcg (2,000 unit) tablet pravastatin 20 mg PO SUMOWETHSA@2100 05/28/20 05/28/20 Previous Rx's Medication Instructions Recorded sildenafil (pulm.hypertension) 20 20 mg PO DAILY PRN #75 tab 06/30/19 mg tablet Results & Data (ED) Vital Signs Vital Signs - 24 hr 05/28/20 06:55 05/28/20 08:52 Temperature 36.5 C Temperature Source Oral Pulse Rate 73 Pulse Rate [Finger] 68 Pulse Rhythm [Finger] Regular Respiratory Rate 18 20 Respiratory Effort / Characteristics Non-Labored Spontaneous Respiratory Depth Normal Normal Respiratory Pattern Regular Blood Pressure 140/86 Blood Pressure [Right Arm] 134/72 Blood Pressure Mean 104 Blood Pressure Mean [Right Arm] 92 Pulse Oximetry 99 99 Oxygen Delivery Method Room Air Room Air Sepsis Recent Fever Within 48 Hours No Sepsis New/Unexplained Change in Mental Status No Sepsis Action Taken by Nursing No Action Required Laboratory Data Result diagrams: 05/28/20 07:52 05/28/20 07:52 Lab Results 05/28/20 05/28/20 05/28/20 Range/Units 07:52 07:52 07:52 WBC 8.43 (4.8-10.8) K/uL RBC 4.68 L (4.7-6.1) M/uL Hgb 15.3 (14.0-18.0) g/dL Hct 43.5 (42-52) % MCV 92.9 (80-100) fL MCH 32.7 (25-34) pg MCHC 35.2 (32-36) g/dL RDW Std Deviation 41.4 (36.4-46.3) fL RDW Coeff of Keri 12.3 (11.5-14.5) % Plt Count 190 (130-400) K/uL MPV 10.4 (7.4-10.4) fL Immature Gran % (Auto) 0.1 % Neut % (Auto) 78.5 % Lymph % (Auto) 15.4 % Wise % (Auto) 5.0 % Eos % (Auto) 0.9 % Baso % (Auto) 0.1 % Neut # (Auto) 6.61 H (1.4-6.5) K/uL Lymph # (Auto) 1.30 (1.2-3.4) K/uL Wise # (Auto) 0.42 (0.11-0.59) K/uL Eos # (Auto) 0.08 (0-0.5) K/uL Baso # (Auto) 0.01 (0-0.2) K/uL Immature Gran # (Auto) 0.01 (0.00-0.02) K/uL Sodium 138 (136-145) mmol/L Potassium 3.9 (3.5-5.1) mmol/L Chloride 109 H (98-107) mmol/L Carbon Dioxide 25 (21-32) mmol/L Anion Gap 5.0 (3-11) BUN 19 H (7-18) mg/dl Creatinine 1.15 (0.6-1.4) mg/dl Est Cr Clr Drug Dosing 65.3 ml/min Est GFR ( Amer) 71.2 Est GFR (Non-Af Amer) 61.5 BUN/Creatinine Ratio 16.3 (10-20) Glucose 102 H (70-99) mg/dl Lactate 0.8 (0.4-2.0) mmol/L Calcium 8.8 (8.5-10.1) mg/dl Magnesium (1.8-2.4) mg/dl Total Bilirubin 0.7 (0.2-1) mg/dl AST 17 (15-37) U/L ALT 19 (12-78) U/L Alkaline Phosphatase 72 (45-117) U/L Total Protein 7.4 (6.4-8.2) gm/dl Albumin 4.1 (3.4-5.0) gm/dl Globulin 3.3 (2.5-4.0) gm/dl Albumin/Globulin Ratio 1.2 (0.9-2) Lipase 167 (73-393) U/L 05/28/20 Range/Units 07:52 WBC (4.8-10.8) K/uL RBC (4.7-6.1) M/uL Hgb (14.0-18.0) g/dL Hct (42-52) % MCV (80-100) fL MCH (25-34) pg MCHC (32-36) g/dL RDW Std Deviation (36.4-46.3) fL RDW Coeff of Keri (11.5-14.5) % Plt Count (130-400) K/uL MPV (7.4-10.4) fL Immature Gran % (Auto) % Neut % (Auto) % Lymph % (Auto) % Wise % (Auto) % Eos % (Auto) % Baso % (Auto) % Neut # (Auto) (1.4-6.5) K/uL Lymph # (Auto) (1.2-3.4) K/uL Wise # (Auto) (0.11-0.59) K/uL Eos # (Auto) (0-0.5) K/uL Baso # (Auto) (0-0.2) K/uL Immature Gran # (Auto) (0.00-0.02) K/uL Sodium (136-145) mmol/L Potassium (3.5-5.1) mmol/L Chloride (98-107) mmol/L Carbon Dioxide (21-32) mmol/L Anion Gap (3-11) BUN (7-18) mg/dl Creatinine (0.6-1.4) mg/dl Est Cr Clr Drug Dosing ml/min Est GFR ( Amer) Est GFR (Non-Af Amer) BUN/Creatinine Ratio (10-20) Glucose (70-99) mg/dl Lactate (0.4-2.0) mmol/L Calcium (8.5-10.1) mg/dl Magnesium 2.3 (1.8-2.4) mg/dl Total Bilirubin (0.2-1) mg/dl AST (15-37) U/L ALT (12-78) U/L Alkaline Phosphatase (45-117) U/L Total Protein (6.4-8.2) gm/dl Albumin (3.4-5.0) gm/dl Globulin (2.5-4.0) gm/dl Albumin/Globulin Ratio (0.9-2) Lipase (73-393) U/L Administered Medications Lactated Ringer's (Lr) 1,000 mls @ 125 mls/hr IV .Q8H HAILEE Stop: 06/27/20 12:01 Last Admin: 05/28/20 13:00 Dose: 125 mls/hr Documented by: [id number] Ioversol (Optiray 320 100ml) 94 ml IV ONCE PRN PRN Reason: Interaction Checking Stop: 06/01/20 09:42 Last Admin: 05/28/20 09:44 Dose: 94 ml Documented by: [id number] Discontinued Medications Sodium Chloride (Nss) 500 mls @ 999 mls/hr IV .Q31M HAILEE Stop: 05/28/20 07:45 Last Infusion: 05/28/20 09:27 Dose: 0 mls/hr Documented by: [id number] Admin: 05/28/20 08:03 Dose: 999 mls/hr Documented by: [id number] Acetaminophen (Ofirmev) 1,000 mg in 100 mls @ 400 mls/hr IV NOW STA Stop: 05/28/20 07:29 Last Infusion: 05/28/20 09:27 Dose: 0 mls/hr Documented by: [id number] Admin: 05/28/20 08:03 Dose: 400 mls/hr Documented by: [id number] Sodium Chloride (Nss 1000ml) 500 mls @ 999 mls/hr IV .Q31M ONE Stop: 05/28/20 11:42 Last Infusion: 05/28/20 13:00 Dose: 0 mls/hr Documented by: [id number] Admin: 05/28/20 12:23 Dose: 999 mls/hr Documented by: [id number] Discharge Plan Visit Data *Final* Discharge Date/Time: 05/28/20 11:09 Chief Complaint: Abdominal Pain Stated Complaint: ABD PAIN ED Provider: Leonard Jara ED Midlevel Provider: Catherine Conroy Discharge Problem: Enteritis, Small bowel obstruction, partial Patient Disposition: Admitted As Inpatient Condition: Good Discharge Instructions Interventions: ED Discharge Assessment Last Done: 05/28/20 11:09
[2020-05-28 08:14] LABS: Basophils # (auto) 0.01 K/uL (0-0.2); Basophils % (auto) 0.1 %; Eosinophils # (auto) 0.08 K/uL (0-0.5); Eosinophils % (auto) 0.9 %; Hematocrit (blood only) 43.5 % (42-52); Hemoglobin 15.3 g/dL (14.0-18.0); Immature Granulocytes # (auto) 0.01 K/uL (0.00-0.02); Immature Granulocytes % (auto) 0.1 %; Lymphocytes % (auto) 15.4 %; Mean Corpuscular Hemoglobin 32.7 pg (25-34); Mean Corpuscular Hgb Conc 35.2 g/dL (32-36); Mean Corpuscular Volume 92.9 fL (80-100); Mean Platelet Volume 10.4 fL (7.4-10.4); Monocytes # (auto) 0.42 K/uL (0.11-0.59); Neutrophils # (auto) 6.61 K/uL (1.4-6.5); Neutrophils % (auto) 78.5 %; Platelet Count 190 K/uL (130-400); RDW Coefficient of Variation 12.3 % (11.5-14.5); RDW Standard Deviation 41.4 fL (36.4-46.3); Red Blood Count 4.68 M/uL (4.7-6.1); White Blood Count 8.43 K/uL (4.8-10.8)
[2020-05-28 08:35] LABS: Albumin Level 4.1 gm/dl (3.4-5.0); BUN Creatinine Ratio 16.3 (10-20); Calcium 8.8 mg/dl (8.5-10.1); Creatinine Clr Calc Pharmacy 65.3 ml/min; Est GFR (African American) 71.2; Est GFR (Non-African American) 61.5; Potassium 3.9 mmol/L (3.5-5.1)
[2020-05-28 08:38] LABS: Albumin Globulin Ratio 1.2 (0.9-2); Bilirubin,Total 0.7 mg/dl (0.2-1); Globulin 3.3 gm/dl (2.5-4.0); Total Protein 7.4 gm/dl (6.4-8.2)
[2020-05-28] MEDS ORDERED: IOVERSOL 100ml IV PRN (09:43)
--- NOTE | 2020-05-28 10:04 | CT Scan Report ---
ABDOMEN AND PELVIS CT WITH IV CONTRAST CT DOSE: 560.23 mGy.cm HISTORY: Acute left lower quadrant abdominal pain LLQ pain TECHNIQUE: Multiaxial CT images of the abdomen and pelvis were performed following the IV administrat ion of 94 cc of Optiray 320, A dose lowering technique was utilized adhering to the principles of AL RUBIA. COMPARISON STUDY: MRI pelvis 07/31/2011. FINDINGS: Study is mildly motion degraded. The imaged lung bases are generally clear. No pneumatosis or pneumoperitoneum. Extensive coronary art caty calcifications. The heart is upper limits of normal in size. No pericardial effusion. The spleen, pancreas, adrenal glands and gallbladder are unremarkable. The liver is also within normal limits. P atency of the hepatic and portal veins. The kidneys are within normal limits. Prostamegaly. Unremarkable urinary bladder. Calcified plaque th e abdominal aorta without aneurysm. No adenopathy. Surgical clips are noted within the right inguinal tissues and upper scrotum. Small hiatal hernia. Trace free fluid within the dependent pelvis. 11 mm calcifications also noted wi thin the dependent left hemipelvis. Mild fecal retention. The appendix is surgically absent. There ar e multiple mildly dilated and prominent air and fluid-filled loops of small bowel within the abdomen and pelvis measuring up to approximately 3 cm. No discrete transition point identified. Areas of mild wall thickening with perienteric stranding are noted as seen on image 285 series 3. Soft tissues are unremarkable. Degenerative changes of the hips, pelvis and spine. No acute fracture. Remote bilatera l L5 pars defects with 12 mm anterolisthesis L5 on S1. IMPRESSION: 1. Multiple mildly dilated loops of fluid-filled small bowel with air-fluid levels are noted in addit ion to mild small bowel wall thickening with trace perienteric inflammatory stranding. No discrete tr ansition point identified. Findings are suggestive of enteritis with ileus versus low-grade small bow el obstruction. Close follow-up recommended. 2. No pneumatosis or pneumoperitoneum. 3. Appendectomy. 4. Additional findings as above. ACT 112: Negative or not required by law. The above report was generated using voice recognition software. It may contain grammatical, syntax o r spelling errors. Electronically signed by: Jaret Mehta M.D. 05/28/2020 10:03 AM
--- NOTE | 2020-05-28 10:40 | History & Physical Report ---
Date of Service May 28, 2020 Assessment & Plan (1) Small bowel obstruction, partial: Possible low grade based on imaging. Suspect related to enteritis/ileus state with possible adhesions NPO, bowel rest Electrolytes good No need for surgery consult at present time No need for NG tube unless he start having nausea or vomiting LR @ 125 ml/hr Patient can switch to clear liquid diet this evening if no further abdominal pain, nausea or vomiting. (2) Enteritis: Stool culture (3) Correa esophagus: Continue omeprazole or hospital formulary equivalent once he can eat and drink (4) Peripheral neuropathy: Noted Hx. On no medication for this. (5) Hyperlipidemia: Continue pravastatin once he can eat and drink (6) DVT prophylaxis: SCDs Admission and Anticipated Discharge Date Admission Date: 05/28/2020 History of Present Illness Chief Complaint: Abdominal pain Primary Care Provider: Gildardo Galdamez MD Christiano Arnold is a 75-year-old male who presents to the ER by private vehicle due to abdominal pain. Started at 7 PM last night just after eating dinner. He change his diet yesterday eating a lot more fruits, going low-carb, nuts. Pain came on gradually. [place] like a constant pressure. Better when lying on the left side of his abdomen. Associated nausea, flatus, belching. Severity 7/10 at worst when he first came to the ER. Currently on admission 0/10 since receiving acetaminophen IV and normal saline bolus. He denies any current nausea, vomiting, abdominal pain, diarrhea, constipation, melena, bright red blood in stool. No fevers or chills with this illness. No shortness of breath, cough, fever, chills, loss of taste or smell. No known COVID-19 exposure. Allergies Allergy/AdvReac Type Severity Reaction Status Date / Time No Known Allergies Allergy Unknown NONE Unverified 05/28/20 07:35 Home Medications Home Medications Medication Instructions Recorded Confirmed Type sildenafil (pulm.hypertension) 20 20 mg PO DAILY PRN #75 tab 06/30/19 05/28/20 Rx mg tablet omeprazole 40 mg capsule,delayed 40 mg PO QAM 08/19/19 05/28/20 History release cholecalciferol (vitamin D3) 50 2,000 units PO QAM 12/11/19 05/28/20 History mcg (2,000 unit) tablet pravastatin 20 mg PO SUMOWETHSA@2100 05/28/20 05/28/20 History Past Med/Surg History Medical History (Updated 05/28/20 @ 20:30 by Jarett Cordero MD) Elevated PSA Inflamed sebaceous cyst Larynx polyp Lumbar spondylosis (Inactive) Muscle cramp, nocturnal (Inactive) Urinary frequency (Inactive) UTI (urinary tract infection) (Resolved) Vitamin D deficiency (Acute) Surgical History (Updated 02/23/20 @ 09:35 by JOSE Daugherty, MS, SENIOR AUTOMATION ENGINEER-C) H/O ligation of vein History of prostate biopsy S/P appendectomy S/P vasectomy Status post incision and drainage Social History Smoking Status: Former smoker Second Hand Exposure: Yes; Do You Dip or Chew Tobacco: No; Hx Alcohol Use: No Hx Substance Use: No Preferred Language: Georgian Communication Ability: Effective Visual Impairment: No Limitations Hearing Ability: Normal Mobile Sales Technician Required: No Beliefs That Will Affect Care: None marital status: Current Living Situation: Alone current occupational status: retired Other Information That Helps Us Care for You: No Feels Safe at Home: Yes Safety Concerns: Feels Safe At This Time Dental Care, Regularly: Yes Physical Activity Frequency: 3-4 Times per Week Seatbelt Use: always Review of Systems Review of Systems: All systems reviewed & are unremarkable except as noted in HPI & below Physical Exam Constitutional: WD/WN, vitals as above Eyes: PERRL, conjunctivae normal, anicteric sclerae ENMT: external ear and nose normal, oropharynx normal Neck: trachea midline, no thyromegaly Respiratory: normal respiratory effort, lungs clear to auscultation Cardiovascular: RRR, no murmur, no edema Gastrointestinal (Abdomen): normal bowel sounds, soft, nontender, no hep atosplenomegaly Musculoskeletal: no cyanosis or clubbing, extremities motor strength 5/5 Skin: no rashes, warm and dry Neurologic: moves all extremities and awake; not confused Psychiatric: A+Ox3, euthymic affect Genitourinary: no CVA tenderness Lymphatic: no cervical or axillary lymphadenopathy Results & Data Results & Data ([facility]) Vital Signs (Past 12 Hours) Vital Signs Temp Pulse Pulse Resp BP BP Pulse Ox 05/28/20 08:52 68 20 134/72 99 05/28/20 06:55 36.5 C 73 18 140/86 99 Diagnostic Findings ABDOMEN AND PELVIS CT WITH IV CONTRAST IMPRESSION: 1. Multiple mildly dilated loops of fluid-filled small bowel with air-fluid levels are noted in addition to mild small bowel wall thickening with trace perienteric inflammatory stranding. No discrete transition point identified. Findings are suggestive of enteritis with ileus versus low-grade small bowel obstruction. Close follow-up recommended. 2. No pneumatosis or pneumoperitoneum. 3. Appendectomy. 4. Additional findings as above. 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
[2020-05-28] MEDS ORDERED: SODIUM CHLORIDE 0.9% 1000ML 500 ML IV ONE (11:12)
[2020-05-28] MEDS ORDERED: ONDANSETRON INJ 2 MG/ML 2 ML VIAL IV PRN (12:02)
[2020-05-28] MEDS ORDERED: ACETAMINOPHEN 1,000 MG/100 ML VIAL IV PRN (12:02)
[2020-05-28] MEDS: LACTATED RINGER'S 1,000 ML IV SCH ×2 (13:00→20:44)
[2020-05-28] MEDS ORDERED: ACETAMINOPHEN 325 MG TAB PO PRN (20:12)
[2020-05-28] MEDS ORDERED: SILDENAFIL CITRATE 20 MG TABLET PO PRN (20:27)
[2020-05-28] MEDS: PRAVASTATIN SOD 20 MG TAB PO SCH (21:06)
[2020-05-29] MEDS: CHOLECALCIFEROL 1,000 UNITS 25 MCG TAB PO SCH (10:23)
[2020-05-29] MEDS: PANTOprazole 40 MG TAB PO SCH (10:24)
--- NOTE | 2020-05-29 13:23 | Hospitalist Progress Note ---
Date of Service May 29, 2020 Assessment & Plan (1) Small bowel obstruction, partial: Possible low grade based on imaging. Suspect related to enteritis/ileus state with possible adhesions Tolerating clears, can advance to full liquid s/p bowel movement CBC, PRP WNL No need for surgery consult at present time No need for NG tube unless he start having nausea or vomiting LR @ 125 ml/hr Stool cx pending (2) Enteritis: Stool culture (3) Correa esophagus: Continue omeprazole or hospital formulary equivalent once he can eat and drink (4) Abnormal EKG: Initial EKG was noted for sinus nora and 1st degree AVB This has been seen on EKGs noted in [facility]USE as far back as 2013 Repeat EKG noted for afib Repeat EKG today noted for sinus nora and 1st degree AVB again Pt without hx of afib. Uncertain if this is real Should have f/u EKG as outpt, asx if there are episodes of afib If new issues, t/c outpt Holter (5) Peripheral neuropathy: Noted Hx. On no medication for this. (6) Hyperlipidemia: Continue pravastatin once he can eat and drink (7) DVT prophylaxis: SCDs Admission and Anticipated Discharge Date Admission Date: May 28, 2020 Subjective Pt is feeling much better. He has been walking the halls without issue. He has been tolerating clears without issue. He is asking for more substantial PO inta ke. He denies magdaleno abd pain at this point, but states he does feel "funny, like you do after you have stomach pain that goes away". He feels a touch bloated, but not much. He has not had n/v/d throughout this episode. Pt denies fever, SOB, chest pain, LE pain or swelling. Called after lunch by nursing, pt did have a small bowel movement and even better than during our discussion. Review of Systems Review of Systems: Pertinent positives and negatives reviewed in HPI--all others negative Physical Exam Constitutional: WD/WN, vitals as above Eyes: normal visual siddiqui by confrontation and + anicteric sclerae Neck: normal visual inspection and trachea midline Respiratory: normal respiratory effort, lungs clear to auscultation Cardiovascular: Rate/Rhythm: regular rate and regular rhythm Gastrointestinal (Abdomen): Inspection/Auscultation: abdomen not distended Percussion/Palpation: abdomen soft; abdomen nontender Musculoskeletal: Head/Neck/Chest: normocephalic and head atraumatic negative for edema, peripheral pulses intact Skin: no rashes, warm and dry Neurologic: awake; not confused Speech / Cognition: normal speech Psychiatric: A+Ox3, euthymic affect Results & Data Results & Data ([facility]) Vital Signs (Past 12 Hours) Vital Signs Temp Pulse Resp BP Pulse Ox 05/29/20 07:17 36.5 C 56 L 16 146/82 H 97 PG Care Time/CCT Total # of Minutes Spent Total Time Spent with Patient: Total time spent is greater than 50% in coordination of care (as documented) at patient's floor/unit and/or counseling patient: Coding Level of Care Code 64593 Subseq Hosp Care Lvl 3 Diagnoses Small bowel obstruction, partial K56.600 Enteritis K52.9 Correa esophagus K22.70 Abnormal EKG R94.31 Peripheral neuropathy G62.9 Hyperlipidemia E78.5 DVT prophylaxis Z29.9
[2020-05-29] MEDS: PRAVASTATIN SOD 20 MG TAB PO SCH (21:15)
[2020-05-30] MEDS: CHOLECALCIFEROL 1,000 UNITS 25 MCG TAB PO SCH (08:28)
[2020-05-30] MEDS: PANTOprazole 40 MG TAB PO SCH (08:28)
--- NOTE | 2020-05-30 08:53 | Hospitalist Progress Note ---
Date of Service May 30, 2020 Assessment & Plan (1) Small bowel obstruction, partial: Possible low grade based on imaging. Suspect related to enteritis/ileus state with possible adhesions Tolerating clears, can advance to full liquid s/p bowel movement CBC, PRP WNL No need for surgery consult at present time No need for NG tube unless he start having nausea or vomiting LR @ 125 ml/hr Stool cx pending (2) Enteritis: Stool culture (3) Correa esophagus: Continue omeprazole or hospital formulary equivalent once he can eat and drink (4) Abnormal EKG: Initial EKG was noted for sinus nora and 1st degree AVB This has been seen on EKGs noted in [facility] as far back as 2013 Repeat EKG noted for afib Repeat EKG today noted for sinus nora and 1st degree AVB again Pt without hx of afib. Uncertain if this is real Should have f/u EKG as outpt, asx if there are episodes of afib If new issues, t/c outpt Holter (5) Peripheral neuropathy: Noted Hx. On no medication for this. (6) Hyperlipidemia: Continue pravastatin once he can eat and drink (7) DVT prophylaxis: SCDs Admission and Anticipated Discharge Date Admission Date: May 28, 2020 Results & Data Results & Data ([facility]) Vital Signs (Past 12 Hours) Vital Signs Temp Pulse Resp BP Pulse Ox 05/30/20 06:53 97.3 F L 66 16 143/90 H 95 05/29/20 23:45 97.9 F 60 16 144/83 H 97 PG Care Time/CCT Total # of Minutes Spent Total Time Spent with Patient: Total time spent is greater than 50% in coordination of care (as documented) at patient's floor/unit and/or counseling patient: Coding Diagnoses Small bowel obstruction, partial K56.600 Enteritis K52.9 Correa esophagus K22.70 Abnormal EKG R94.31 Peripheral neuropathy G62.9 Hyperlipidemia E78.5 DVT prophylaxis Z29.9
--- NOTE | 2020-05-30 13:18 | Electrocardiogram Report ---
Test Reason : Blood Pressure : / mmHG Vent. Rate : 060 BPM Atrial Rate : 056 BPM P-R Int : 000 ms QRS Dur : 110 ms QT Int : 410 ms P-R-T Axes : 000 -35 050 degrees QTc Int : 410 ms Sinus rhythm with first degree AV block and periods of slowing which may be 2:1 AV block Left axis deviation Incomplete right bundle branch block Abnormal ECG When compared with ECG of 13-DEC-2016 11:24, Current rhythm has replaced Sinus rhythm Confirmed by Kiran Oseguera ([id number]) on 05/30/2020 1:17:47 PM Referred By: REFERRED SELF Confirmed By:Kiran Oseguera
--- NOTE | 2020-05-30 13:33 | Electrocardiogram Report ---
Test Reason : Blood Pressure : / mmHG Vent. Rate : 055 BPM Atrial Rate : 055 BPM P-R Int : 336 ms QRS Dur : 114 ms QT Int : 428 ms P-R-T Axes : 048 -28 044 degrees QTc Int : 409 ms Sinus bradycardia with 1st degree A-V block with Premature atrial complexes Otherwise normal ECG When compared with ECG of 28-MAY-2020 08:06, (unconfirmed) Sinus rhythm has replaced possible second degree AV block Confirmed by Kiran Oseguera ([id number]) on 05/30/2020 1:33:07 PM Referred By: REFERRED SELF Confirmed By:Kiran Oseguera
--- NOTE | 2020-05-30 13:54 | Electrocardiogram Report ---
Test Reason : Blood Pressure : / mmHG Vent. Rate : 059 BPM Atrial Rate : 059 BPM P-R Int : 344 ms QRS Dur : 110 ms QT Int : 432 ms P-R-T Axes : 000 -38 042 degrees QTc Int : 427 ms Sinus bradycardia with 1st degree A-V block Left axis deviation Abnormal ECG When compared with ECG of 28-MAY-2020 20:38, (unconfirmed) Premature atrial complexes are no longer Present Confirmed by Kiran Oseguera ([id number]) on 05/30/2020 1:54:02 PM Referred By: REFERRED SELF Confirmed By:Kiran Oseguera
--- NOTE | 2020-05-30 17:31 | Discharge Summary ---
Date of Service May 30, 2020 Admission HPI Per Admitting Provider Christiano Arnold is a 75-year-old male who presents to the ER by private vehicle due to abdominal pain. Started at 7 PM last night just after eating dinner. He change his diet yesterday eating a lot more fruits, going low-carb, nuts. Pain came on gradually. [place] like a constant pressure. Better when lying on the left side of his abdomen. Associated nausea, flatus, belching. Severity 7/10 at worst when he first came to the ER. Currently on admission 0/10 since receiving acetaminophen IV and normal saline bolus. He denies any current nausea, vomiting, abdominal pain, diarrhea, constipation, melena, bright red blood in stool. No fevers or chills with this illness. No shortness of breath, cough, fever, chills, loss of taste or smell. No known COVID-19 exposure. Principal Diagnosis small bowel obstruction resolved Discharge Exam The patient appeared well Vital signs as documented. Lungs are clear to auscultation and appear unlabored Cardiac exam, Rhythm is regular.. No murmurs, rubs or gallops. Abdominal exam reveals normal bowel sounds, soft non tender, no masses Extremities are nonedematous and both pedal pulses are normal. Neurologic exam is alert and oriented, no focal loss of strength or sensation Skin is without bruises or rashes Psychologically is without concerns for anxiety or depression Discharge Data Allergies Allergy/AdvReac Type Severity Reaction Status Date / Time No Known Allergies Allergy Unknown NONE Unverified 05/28/20 07:35 Consultations 05/28/20 10:34 ED Decision to Admit Stat Ordered Studies 05/28/20 07:15 CT abd pelvis IV con only Stat Hospital Course (1) Small bowel obstruction, partial: Resolved Tolerating clears, can advance to full liquid s/p bowel movement (2) Enteritis: Stool culture (3) Correa esophagus: Continue omeprazole (4) Abnormal EKG: Initial EKG was noted for sinus nora and 1st degree AVB This has been seen on EKGs noted in [facility] as far back as 2013 Repeat EKG today noted for sinus nora and 1st degree AVB again Should have f/u EKG as outpt, asx if there are episodes of afib, pt was not anticoagulated as ecg for my review are 1 avb If new issues, t/c outpt Holter with strongly recommend consideration of cardiology follow-up (5) Peripheral neuropathy: Noted Hx. On no medication for this. (6) Hyperlipidemia: Continue pravastatin once he can eat and drink Total Time Total Time Spent Total Time Spent (In Minutes): It required greater than 30 minutes to prepare this patient for discharge Discharge Plan Discharge Items Patient Disposition: Home - Self-Care Reason For Visit: LOW GRADE SMALL BOWEL OBSTRUCTION Discharge Diagnosis: partial small bowel obstruction, diverticulosis Condition on Discharge: Good Activity: Resume your previous activity Non-emergency contact: Primary Care Provider Call non-emergency contact if: you have any medication questions and your symptoms worsen Follow-up/Referrals: Gildardo Galdamez MD [Primary Care Provider] - 06/02/20 9:30 am (1 week f/u with PCP APPT WITH SIDNEY BENSON) Diet: Regular Diet Comment: slowly return diet to normal Addtl Attending Provider Instructions: please follow up with primary care doctor in one week to eval your improvement and discuss your slower heart rate Pending Studies at Discharge: No Stand-Alone Forms: My [facility] [employer]Simple, Smoking Cessation Medications and DC Order Prescriptions: Continued sildenafil (pulm.hypertension) 20 mg tablet 20 mg PO DAILY PRN (Reason: 1-5 tablets as needed for activity) Qty: 75 RF: 4 omeprazole 40 mg capsule,delayed release(DR/EC) 40 mg PO QAM RF: 0 cholecalciferol (vitamin D3) 2,000 unit tablet 2,000 units PO QAM RF: 0 pravastatin 20 mg tablet 20 mg PO SUMOWETHSA@2100 RF: 0 Discharge Orders: Discharge Order (Routine); Ordered 05/30/20 Ordered By: Joaquin Rene/Other Patient Handouts: Small Bowel Obstruction Admission Data Admit Date/Time: 05/28/20 10:37 Attending Provider: Joaquin Dixon Admit Provider: Jarett Cordero Primary Care Provider: Gildardo Galdamez Other Providers: Jarett Cordero Other Interventions: Discharge Summary Assessment (RN) Last Done: 05/30/20 14:09 DC Date/Time DO NOT enter until pt leaves facility: 05/30/20 15:35 Coding Level of Care Code D/C Day Management >30 mins Diagnoses Small bowel obstruction, partial K56.600 Enteritis K52.9 Correa esophagus K22.70 Abnormal EKG R94.31 Peripheral neuropathy G62.9 Hyperlipidemia E78.5
== END 2020-05-30 15:35 | disposition home or self-care (01) | DRG 390 ==
LOC: ED 06:52 → 3N 10:37 → SUATTDRO 10:37 → 3N 11:09

== ENCOUNTER 2023-10-07 05:34 | Inpatient (IN) ==
--- NOTE | 2023-09-13 10:34 | PAT Medication Instructions ---
Medication Instructions Date of Service September 13, 2023 Home Medications Medication Instructions Recorded sildenafil (pulm.hypertension) 20 20 mg PO DAILY PRN sexual activity 10/04/22 mg tablet #75 tabs omeprazole 40 mg capsule,delayed release 40 mg PO QAM cholecalciferol (vitamin D3) 50 mcg (2,000 unit) tablet 2,000 units PO QAM sildenafil (pulm.hypertension) 20 mg tablet 20 mg PO DAILY PRN mecobalamin (vitamin B12) 500 mcg chewable tablet 500 mcg PO QAM aspirin 81 mg tablet,delayed release (Enteric Coated Aspirin) 81 mg PO QAM clopidogrel 75 mg tablet 75 mg PO QAM pravastatin 20 mg tablet 20 mg PO HS ASK your prescriber and surgeon aspirin 81 mg tablet,delayed release (Enteric Coated Aspirin) 81 mg PO QAM clopidogrel 75 mg tablet 75 mg PO QAM DO NOT take the morning of surgery cholecalciferol (vitamin D3) 50 mcg (2,000 unit) tablet 2,000 units PO QAM sildenafil (pulm.hypertension) 20 mg tablet 20 mg PO DAILY PRN mecobalamin (vitamin B12) 500 mcg chewable tablet 500 mcg PO QAM Take morning of surgery With a small sip of water, OTHERWISE NOTHING TO EAT OR DRINK AFTER MIDNIGHT: omeprazole 40 mg capsule,delayed release 40 mg PO QAM Take evening before surgery pravastatin 20 mg tablet 20 mg PO HS Other Notes If you have any questions please call us at [phone] or [phone] or [phone] or [phone]
--- NOTE | 2023-09-19 10:29 | Anesthesiology Consultation ---
Date of Service September 19, 2023 Assessment & Plan (1) Encounter for pre-operative examination: Chart Review Chart Review: Acceptable Risk for Surgery and Patient seen in Pre Admission Testing Teaching & Discussion Pre-Anesthesia Teaching/Discussion Notes: Instructed NPO after midnight before surgery, except medications with 15 cc of water. Medication instructions provided according to the PAT guidelines. History Surgery Operation Date: 10/03/23 08:00 Proposed Procedures p Right Transcarotid Artery Revascularization - Ascencion Motley MD Height/Weight Height: 6 ft 3.75 in Weight: 87 kg Allergies Allergy/AdvReac Type Severity Reaction Status Date / Time No Known Drug Allergies Allergy Verified 09/12/23 15:14 Medications Home Medications Medication Instructions Recorded Confirmed Last Taken omeprazole 40 mg capsule,delayed 40 mg PO QAM 08/19/19 09/12/23 05/28/20 release cholecalciferol (vitamin D3) 50 2,000 units PO QAM 12/11/19 09/12/23 05/27/20 mcg (2,000 unit) tablet sildenafil (pulm.hypertension) 20 20 mg PO DAILY PRN sexual activity 10/04/22 09/12/23 Unknown mg tablet #75 tabs mecobalamin (vitamin B12) 500 mcg 500 mcg PO QAM 07/10/23 09/12/23 Unknown chewable tablet aspirin 81 mg tablet,delayed 81 mg PO QAM 09/12/23 09/12/23 Unknown release (Enteric Coated Aspirin) clopidogrel 75 mg tablet 75 mg PO QAM 09/12/23 09/12/23 Unknown pravastatin 20 mg tablet 20 mg PO HS 09/12/23 09/12/23 Unknown Past Medical History Medical History (Updated 09/19/23 @ 10:50 by Candice Yuen PA-C) Urinary retention Improved since Greenlight laser, denies urinary retention with procedures Carotid artery disease Neck CTA 07/23/23: 60-70% stenosis of the pRICA (2 cm distal to the vessel origin), No LICA stenosis History of stroke 07/09/2023, indicental finding on MRI scan for his hearing/auditory nerve due to hearing loss > carotids subsequently checked and significant stenosis found Asymptomatic; currently on plavix and aspirin High cholesterol "stable" w/medication GERD (gastroesophageal reflux disease) "silent reflux" controlled, stable per pt Sensorineural hearing loss of both ears Small bowel obstruction, partial Pt denies, "resolved" [facility] 05/2020 admission records Elevated PSA Under annual surveillance Lumbar spondylosis Per records, patient denies Muscle cramp, nocturnal Patient denies h/o seizures, heart attack, heart failure, DM, HTN, blood clots/DVTs or blood transfusions. Exercise / Class Metabolic Activity II 4-5 Yardwork/Stairs/Walk up hill (denies chest discomfort or shortness of breath with 1 FOS) Past Family History Family History Mother Lung cancer Brother Prostate cancer Father COPD (chronic obstructive pulmonary disease) Family/Other Hypertension Denies family history of Ovarian cancer Myocardial infarction Breast cancer Colorectal cancer Past Surgical History Surgical History History of esophagogastroduodenoscopy (EGD) Hx of colonoscopy History of throat surgery polyp removed from larynx History of prostate surgery Greenlight laser surgery on prostate Status post incision and drainage for a sebaceous cyst H/O ligation of vein S/P vasectomy History of prostate biopsy S/P appendectomy Past Anesthesia History No Hx of Anesthesia Complications and No Family Hx of Anesthesia Complications History of PONV No Hx of PONV and No Hx of Motion Sickness Social History Smoking Status: Former smoker Do You Dip or Chew Tobacco: No Smoking End Date: remote hx Hx Alcohol Use: Yes (not anymore) Hx Substance Use: Yes substance use type: former substance user and marijuana Last Used Substance Other:: experimented with marijuana in college many years ago Review of Systems Patient denies chest pain, shortness of breath, dyspnea on exertion, snoring, witnessed apneas, fever, chills, cough, wheezing, or palpitations. Physical Exam Vital Signs Vitals BP 137/82 P 79 TEMP 97.7 SP02 97% on RA RESP 18 Physical Patient resting comfortably in chair in no acute distress, alert and oriented, responding appropriately throughout visit Full cervical extension range of motion without pain TMD 3.5 finger breadths Mallampati Score 2 Dentition: implant-left lower side and several caps/crowns, denies chipped or loose teeth, or bridges Lungs: normal respiratory effort. Good air movement, clear throughout to auscultation, no adventitious breath sounds Cardiac: regular rate and rhythm, no murmurs noted Testing Electrocardiogram Date: 09/19/23 Sinus rhythm with 1st degree AV block, rate 79 bpm Chest X-Ray Date: 09/19/23 No acute chest disease Echocardiogram Date: 08/12/23 EF 50-55% No regional wall motion abnormalities Mild cLVH Mild to moderate mitral regurgitation Technically difficult study Other Testing Head and neck CTA 07/23/23 1. Moderate plaque within the bilateral carotid bifurcations. 60-70% stenosis of the proximal right internal carotid artery, 2 cm distal to the vessel origin. No stenosis within the left internal carotid artery. 2. Severe stenosis of the proximal left external carotid artery. 3. Moderate stenosis at the origin of the left vertebral artery. Brain MRI 07/09/23 1. A 6 mm focus of restricted diffusion at the body of the right corpus callosum. By definition this is consistent with an acute infarct. Follow-up brain MRI in 6 months recommended to ensure resolution. 2. Normal bilateral internal auditory canals. 3. This report was called/faxed to the referring clinician following dictation.
[2023-10-07] MEDS ORDERED: CEFAZOLIN 2,000 MG/15 ML SYR IV SCH (06:00)
[2023-10-07] MEDS ORDERED: LACTATED RINGER'S 1,000 ML BAG IV SCH (06:00)
[2023-10-07] MEDS ORDERED: PROPOFOL IV EMULSION 10 MG/ML 20 ML VIAL IV ONE (06:55)
[2023-10-07] MEDS ORDERED: LIDOCAINE 2% 2 ML VIAL/AMP(20MG/ML) INFIL ONE (06:55)
[2023-10-07] MEDS ORDERED: PHENYLEPHRINE HCL 25 MG/250 ML NSS IV ONE (06:55)
[2023-10-07] MEDS ORDERED: ROCURONIUM BROMIDE 10 MG/ML 5 ML VIAL IV ONE (06:55)
[2023-10-07] MEDS ORDERED: fentaNYL citrate PF 100 MCG/2 ML VIAL ONE ×2 (06:55→08:45)
[2023-10-07] MEDS ORDERED: THROMBIN FOR SOLN 20000 UNIT KIT ONE (07:02)
[2023-10-07] MEDS ORDERED: BUPIVACAINE/EPINEPHRINE 0.25% 1:200,000 30 ML VIAL ONE (07:02)
[2023-10-07] MEDS ORDERED: ceFAZolin 330 MG/ML 1 GM VIAL ONE (07:02)
[2023-10-07] MEDS ORDERED: GELATIN SPONGE SZ 100 ONE (07:03)
--- NOTE | 2023-10-07 07:27 | History & Physical Bridge Note ---
Date of Service October 07, 2023 History & Physical Bridge Note I have examined the patient, reviewed the History & Physical and in the interval since the performance of the History & Physical I have noted the following changes of clinical significance: no changes noted
--- NOTE | 2023-10-07 07:27 | History & Physical Report ---
Date of Service October 07, 2023 History of Present Illness Primary Care Provider: Gildardo Galdamez MD Chief Complaint rm#7 here for consult, JONATHAN Reason for Consultation Carotid artery stenosis History of Present Illness I had the pleasure of seeing Christiano today for evaluation of his carotid disease. As you know he is a 78-year-old gentleman who is being worked up for bilateral hearing loss. 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 He subsequently had a CTA of the carotids which showed a 70% narrowing of his right internal carotid artery. He had no functional symptoms of the stroke at that time. He was placed on Plavix and aspirin. He has no complaints of claudication. He has no complaints of cerebrovascular insufficiency. Review of Systems 10 systems were reviewed. Only positive findings occasional cough. Rest of the positive findings are per the HPI. Physical Exam Vitals & Measurements HR: 55 (Monitored) BP: 156/82 SpO2: 98% Input and Output - Last 24 hours (Last 8 hours) No I/O Data Found: On exam he is awake alert oriented x3. No apparent distress. His blood pressure is 160/80 on the left and 156/82 on the right. No carotid bruits. His radials and carotids are +2 bilaterally. Heart had a regular rate and rhythm. Lungs are clear. Abdominal exam is benign I cannot appreciate a pulsatile mass. Distally he has good capillary refill both feet with normal pedal pulses. Diagnostic Results MRI showed acute infarct of the body of the right corpus callosum. CT angiogram showed a 70% narrowing of the right internal carotid artery. Assessment/Plan Carotid artery stenosis with cerebral infarction At this point being that he did have acute stroke on MRI he has a 70% carotid lesion can be labeled as symptomatic requiring intervention. We went over the risks options and benefits of endarterectomy versus TCAR. He understood the risks options and benefits and elected to go ahead with the TCAR procedure. Scheduled in the near future and we will keep you informed of his results. Thank you very much for letting us participate in the care of this patient. Sincerely, Abelino VIDAL Problem List/Past Medical History Ongoing AK (actinic keratosis) Anemia Barretts esophagus Carotid artery stenosis with cerebral infarction Gastric nodule GERD (gastroesophageal reflux disease) Hiatal hernia HTN (hypertension) Renal insufficiency SK (seborrheic keratosis) Historical None Procedure/Surgical History Esophagogastroduodenoscopy (08/21/2021) Esophagogastroduodenoscopy (07/12/2021) Shave biopsy (01/31/2021) Endoscopic ultrasound of upper gastrointestinal tract (09/21/2014) Colonoscopy (07/13/2014) Esophagogastroduodenoscopy (07/13/2014) Medical records review (06/15/2014) Laboratory findings data interpretation (06/15/2014) Esophagogastroduodenoscopy (03/18/2014) Colonoscopy (09/09/2006) B/L Legs-Varicose vein Laser surgery 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 H/O vasectomy Appendectomy Medications Home aspirin(aspirin 81 mg oral delayed release tablet), 81 mg= 1 tab, PO, Daily cholecalciferol(Vitamin D3 1000 intl units oral capsule), 1000 Int_Unit= 1 cap, PO, Daily clopidogrel(clopidogrel 75 mg oral tablet), 75 mg= 1 tab, PO, Daily clopidogrel(Plavix 75 mg oral tablet), 1 tab, PO, Daily, 11 refills cyanocobalamin(Vitamin B12 1000 mcg oral tablet), 1000 mcg= 1 tab, PO, Daily fluorouracil topical(fluorouracil 5% topical cream), 1 appl, topical, qhs, 1 refills omeprazole(omeprazole 40 mg oral delayed release capsule), See Instructions, 3 refills pravastatin(pravastatin 20 mg oral tablet), 20 mg= 1 tab, PO, qhs Allergies NKA Social History Smoking Status Former Smoker, quit > 1 yr Alcohol - Denies Alcohol Use Substance Abuse - Denies Substance Abuse Tobacco - Denies Tobacco Use Family History Emphysema of lung: Father. Enlarged prostate: Brother. Hypertension: Mother. Lung cancer......: Mother. Health Status Family Member(s) Signature Line Electronic Signature on File Ascencion Motley MD Author Signature Dt/Tm: 09/12/2023 10:31 AM Skin Lap Bonder Jah Prabhakar [facility] [place], [address] [place], [place] [id number] Result Type: .Outpt Ltr Date of Service: September 12, 2023 10:26 EST Authorization Status: Final Subject: Consult Note Author or Import Date: MD Motley Eugene J on September 12, 2023 10:31 EST Verified By: MD Motley Eugene J on September 12, 2023 10:31 EST Encounter info: [id number], [facility], Clinic, 09/12/2023 - 09/12/2023 Allergies Allergy/AdvReac Type Severity Reaction Status Date / Time No Known Drug Allergies Allergy Verified 10/07/23 06:03 Home Medications Medication Instructions Recorded Confirmed Type omeprazole 40 mg capsule,delayed 40 mg PO QAM 08/19/19 10/07/23 History release cholecalciferol (vitamin D3) 50 2,000 units PO QAM 12/11/19 10/07/23 History mcg (2,000 unit) tablet mecobalamin (vitamin B12) 500 mcg 500 mcg PO QAM 07/10/23 10/07/23 History chewable tablet aspirin 81 mg tablet,delayed 81 mg PO QAM 09/12/23 10/07/23 History release (Enteric Coated Aspirin) clopidogrel 75 mg tablet 75 mg PO QAM 09/12/23 10/07/23 History pravastatin 20 mg tablet 20 mg PO HS #60 tabs 09/24/23 10/07/23 Rx sildenafil (pulm.hypertension) 20 20 mg PO DAILY PRN sexual activity 10/07/23 10/07/23 History mg tablet (Revatio) Past Med/Surg History Medical History Urinary retention Improved since Greenlight laser, denies urinary retention with procedures Carotid artery disease Neck CTA 07/23/23: 60-70% stenosis of the pRICA (2 cm distal to the vessel origin), No LICA stenosis History of stroke 07/09/2023, indicental finding on MRI scan for his hearing/auditory nerve due to hearing loss > carotids subsequently checked and significant stenosis found Asymptomatic; currently on plavix and aspirin High cholesterol "stable" w/medication GERD (gastroesophageal reflux disease) "silent reflux" controlled, stable per pt Sensorineural hearing loss of both ears Small bowel obstruction, partial Pt denies, "resolved" [facility] 05/2020 admission records Elevated PSA Under annual surveillance Lumbar spondylosis Per records, patient denies Muscle cramp, nocturnal Surgical History History of esophagogastroduodenoscopy (EGD) Hx of colonoscopy History of throat surgery polyp removed from larynx History of prostate surgery Greenlight laser surgery on prostate Status post incision and drainage for a sebaceous cyst H/O ligation of vein S/P vasectomy History of prostate biopsy S/P appendectomy Family History Mother Lung cancer Brother Prostate cancer Father COPD (chronic obstructive pulmonary disease) Family/Other Hypertension Denies family history of Ovarian cancer Myocardial infarction Breast cancer Colorectal cancer Social History Smoking Status: Former smoker Tobacco Type: Cigarettes Smoking End Date: remote hx; Second Hand Exposure: Yes (hx); Do You Dip or Chew Tobacco: No; Tobacco Cessation Education Requested by Patient: No Hx Alcohol Use: Yes (not anymore) Hx Substance Use: Yes Last Used Substance Other:: experimented with marijuana in college many years ago Preferred Language: Bulgarian Communication Ability: Effective Visual Impairment: No Limitations Hearing Ability: Normal Managed Care Director Required: No Beliefs That Will Affect Care: None marital status: Current Living Situation: Alone current occupational status: retired How many Children do You have: 0 Other Information That Helps Us Care for You: No Feels Safe at Home: Yes Safety Concerns: Feels Safe At This Time Diet: regular during the past year weight has: remained stable Dental Care, Regularly: Yes Physical Activity Frequency: 3-4 Times per Week Seatbelt Use: always Sunscreen Use: No Assistive Devices: Glasses and Hearing Aid - Bilateral Assistive Devices Comment: reading glasses prn Results & Data Vital Signs (Past 12 Hours) Vital Signs Temp Pulse Resp BP BP Pulse Ox O2 Del Method 10/07/23 06:24 138/85 143/70 H 10/07/23 05:44 36.5 C 56 L 20 126/76 162/77 H 97 Room Air
[2023-10-07] MEDS ORDERED: LABETALOL HCL IV 5 MG/ML 20ML IV PRN (07:35)
[2023-10-07] MEDS ORDERED: FLUMAZENIL 0.1 MG/1 ML 10 ML VIAL IV PRN (07:35)
[2023-10-07] MEDS ORDERED: ePHEDrine sulfate 50 MG/ML AMP IV PRN (07:35)
[2023-10-07] MEDS ORDERED: fentaNYL citrate PF 100 MCG/2 ML VIAL IV PRN (07:35)
[2023-10-07] MEDS ORDERED: PROMETHAZINE HCL 12.5 MG in SODIUM CHLORIDE 0.9% 50 ML IV PRN (07:35)
[2023-10-07] MEDS ORDERED: NALOXONE HCL 0.4 MG/1 ML VIAL/CARP IV PRN (07:35)
[2023-10-07] MEDS ORDERED: ONDANSETRON INJ 2 MG/ML 2 ML VIAL IV PRN (07:35)
[2023-10-07] MEDS ORDERED: ATROPINE SULFATE 0.1 MG/ML 10ML SYR IV PRN (07:35)
[2023-10-07] MEDS ORDERED: BUPIVACAINE/EPINEPHRINE 0.5% MPF 1:200,000 30 ML VIAL ONE (08:10)
--- NOTE | 2023-10-07 08:14 | Operative Report ---
Post Operative Report Pre & Post Diagnosis Operation Date: 10/07/23 08:00 <No data on this case meets the specified criteria> Procedure Operation Date: 10/07/23 08:00 <No data on this case meets the specified criteria> Surgeon Jessica Rodriguez MD I attest to the content of the Intraoperative Record and any orders documented therein. Any exceptions are noted below.
[2023-10-07] MEDS ORDERED: ONDANSETRON INJ 2 MG/ML 2 ML VIAL ONE (09:31)
[2023-10-07] MEDS ORDERED: PROTAMINE SULFATE 10 MG/ML 5 ML VIAL IV ONE (09:31)
[2023-10-07] MEDS ORDERED: PHENYLEPHRINE 100MCG/ML 10ML SYR IV ONE (09:31)
[2023-10-07] MEDS ORDERED: GLYCOPYRROLATE 0.2 MG/ML VIAL ONE (09:31)
[2023-10-07] MEDS ORDERED: DEXAMETHASONE SOD INJ 4 MG/ML VIAL ONE (09:31)
[2023-10-07] MEDS ORDERED: ePHEDrine sulfate 50 MG/5 ML SYR ONE (09:31)
[2023-10-07] MEDS ORDERED: HEPARIN SOD (PORCINE) 1000 UNIT/ML ONE (09:31)
[2023-10-07] MEDS ORDERED: SUGAMMADEX SODIUM 200 MG/2 ML VIAL IV ONE (09:32)
[2023-10-07] MEDS ORDERED: VISIPAQUE IV ONE (09:33)
--- NOTE | 2023-10-07 09:49 | Post Operative Brief Note ---
Immediate Post Op Note v1 Date of Surgery October 07, 2023 Pre & Post Diagnosis Operation Date: 10/07/23 08:00 Pre-Op Diagnosis: Occlusion and Steonosis of Right Carotid Artery Post-Op Diagnosis: Occlusion and Steonosis of Right Carotid Artery I identified the patient and participated in the time-out.: Yes Procedure Operation Date: 10/07/23 08:00 Actual Procedures p Right Transcarotid Artery Revascularization(Right) - Ascencion Motley MD Surgeon Ascencion Motley MD Tobacco Grower Jessica Adler Estimated Blood Loss 10 Findings Consistent with Post-Op Diagnosis Anesthesia Type General Complications none Disposition Accompanied Patient To Recovery: No Disposition: Recovery Room
--- NOTE | 2023-10-07 10:17 | Operative Report ---
Post Operative Report Pre & Post Diagnosis Operation Date: 10/07/23 08:00 Pre-Op Diagnosis: Right carotid artery 70-79% stenosis History of transient ischemic attack Post-Op Diagnosis: Right carotid artery 70-79% stenosis History of transient ischemic attack I identified the patient and participated in the time-out.: Yes Procedure Operation Date: 10/07/23 08:00 Actual Procedures p Right Transcarotid Artery Revascularization(Right) - Ascencion Motley MD Surgeon Ascencion Motley MD Pediatric Urologist Jessica Rodriguez MD Estimated Blood Loss 10 Findings See Below 1.Moderately calcified right internal carotid artery plaque 2.Adequate placement of ENROUTE Transcarotid stent covering the length of the lesion in the right internal carotid artery 3.Patient neurologically intact at the end of the procedure Fluids 1.5L crystalloid Specimens None Drains None Anesthesia Type General Complications None immediately evident Disposition Accompanied Patient To Recovery: Yes Indications Right internal carotid artery stenosis, symptomatic History of transient ischemic attack Description of Procedure The patient was brought to the operating room, where lines were placed and general anesthesia was accomplished by anesthesia team. A shoulder roll was placed and the neck was rotated towards the left side of the patient. The right neck and left groin were prepped and patient was draped in the usual sterile fashion. A timeout was performed identifying the correct patient by name, procedure, and location of procedure and all were in agreement. A 4cm transverse incision was made between the sternal and clavicular heads of the sternoc leidomastoid muscle. The muscle heads were retracted to each side and the carotid sheath was identified. Using blunt dissection, the carotid sheath was opened and 3cm of common carotid artery (CCA) were isolated. Umbilical tape was placed around the proximal CCA under direct visualization. A 5-0 prolene U- stitch was pre-placed in the anterior wall of the CCA to facilitate hemostasis after removal of the arterial sheath at completion of the procedure. The patient was given 8,000 units of IV heparin. The contralateral (left) common femoral vein was accessed under ultrasound guidance, using a micropuncture needle and a wire and sheath were placed using modified Seldinger technique. The venous return sheath was advanced into the common femoral vein over the 0.035" wire. Blood was aspirated from the flow line and the sheath was flushed with heparinized saline.The sheath was secured to the patient's skin with a 2-0 silk stitch to maintain position in the vessel. ACT was confirmed to be above 250 seconds prior to arterial access. A 4-Khmer non- stiffened micropuncture set was used, puncturing the artery with a 21G needle through the pre-placed U-stitch while holding gentle traction on the umbilical tape to stabilize the CCA within the incision. The micropuncture wire was advanced 3-4cm into the CCA and the 21G needle removed. The micropuncture sheath was advanced 3cm into the CCA and the wire and dilator were removed. A cerebral angiogram was obtained after ensuring there were no air bubbles in the system. The J-tipped guidewire was inserted and the external carotid artery was engaged After micropuncture sheath removal, the transcarotid arterial sheath was advanced to the 3.5cm marker and the 0.035" wire and dilator were removed. Arterial sheath position was assessed under fluoroscopy. The arterial sheath was sutured to the patient at two sites. The Flow Controller was connected to the transcarotid arterial sheath, prepared by passively allowing arterial blood to backfill the line and then it was connected to the venous return sheath. The CCA was clamped proximally with a Aris tourniquet to ensure active flow reversal. Heparinized saline was delivered into the venous flow line to confirm adequate flow reversal. A TCAR timeout was performed, heart rate was 80bpm and systolic BP was 180mmHg. Patient had been pretreated with glycopyrrolate and atropine was available. The lesion was crossed with an 0.014" guidewire and pre-dilation balloon angioplasty was performed with a 5.5x35mm [employer] rapid exchange balloon to 8 atmospheres for about 5 seconds. A 9x40mm ENROUTE transcarotid stent was placed, sized to the right CCA. A completion angiogram was performed showing appropriate stent position with good wall apposition. No post-dilation balloon angioplasty was required. At TCAR case completion, antegrade flow was restored by releasing the tourniquet on the CCA and closing the stopcocks to the flow lines. The total clamp time was 10 minutes. The transcarotid arterial sheath was removed and the pre-placed suture was tied. 25mg of protamine were given. A repeat ACT was obtained and was 147. The venous return sheath was removed and hemostasis achieved with manual compression. The neck incision was irrigated with antibiotic solution and was hemostatic before closure. 10cc of 0.25% marcaine with epinephrine were used for local anesthesia around skin edges. The platysma was approximated with 3-0 Vicryl running suture and the skin was closed with 4-0 running Vicryl suture and covered with Dermabond. The patient tolerated the procedure well and was extubated in the operating room. He was moving all four extremities to command prior to transfer to the recovery room. All counts were correct at the end of the procedure. Fluoroscopy time was 3.7minutes, radiation dose was 41mGy and 10cc of contrast were used. Dr. Motley was present and participated in all critical parts of the procedure. I attest to the content of the Intraoperative Record and any orders documented therein. Any exceptions are noted below.
--- NOTE | 2023-10-07 11:05 | Anesthesiology Progress Note ---
Date of Service October 07, 2023 Anesthesia Post Procedure Vital Signs Vital Signs: Temp Pulse Pulse Resp BP BP BP 10/07/23 11:00 75 16 112/72 10/07/23 10:50 75 17 123/64 10/07/23 10:40 85 19 119/59 L 10/07/23 10:30 83 14 119/68 10/07/23 10:20 98 H 16 120/77 10/07/23 10:10 36.0 C L 98 H 23 120/60 10/07/23 10:05 35.5 C L 98 H 22 135/76 10/07/23 06:24 138/85 143/70 H 10/07/23 05:44 36.5 C 56 L 20 126/76 162/77 H Pulse Ox O2 Del Method O2 Flow Rate 10/07/23 11:00 96 Room Air 0 10/07/23 10:50 97 Room Air 0 10/07/23 10:40 96 Room Air 0 10/07/23 10:30 100 Room Air 0 10/07/23 10:20 100 Oxymask 2 10/07/23 10:10 100 Oxymask 4 10/07/23 10:05 100 Oxymask 6 10/07/23 06:24 10/07/23 05:44 97 Room Air Pain Intensity Neck: Pain Intensity: 5 Transfer of Care Handoff Completed per policy Notes Mental Status: alert / awake / arousable Patient Amnestic to Procedure: Yes Nausea / Vomiting: adequately controlled Pain: adequately controlled Airway Patency, RR, SpO2: stable & adequate BP & HR: stable & adequate Hydration State: stable & adequate Anesthetic Complications: no major complications apparent
[2023-10-07] MEDS ORDERED: LACTATED RINGER'S 1,000 ML IV SCH (12:55)
[2023-10-07] MEDS ORDERED: oxyCODONE/ACETAMINOPHEN 5mg/325mg TAB PO PRN (12:55)
[2023-10-07] MEDS ORDERED: SILDENAFIL CITRATE 20 MG TABLET PO PRN (12:55)
--- NOTE | 2023-10-07 13:25 | Critical Care Consultation ---
Date of Consultation October 07, 2023 Assessment & Plan (1) Stenosis of right carotid artery: Status post right TCAR. General medical management deferred to vascular surgical team. We will continue to monitor hemodynamics and airway in the ICU until the patient is dismissed from the ICU setting. Patient without any significant critical care requirements at this time aside from monitoring as ordered by the vascular surgeon. Right radial arterial line is in place. Thank you for allowing me to participate in care of the patient. Please call with questions. 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 He had a CTA of his carotids that showed a 70% narrowing of his right internal carotid. He was referred to vascular surgery for a right TCAR. He underwent that today. He presents postop to the ICU for monitoring. He denies any complaints including dysphagia, shortness of breath, numbness or tingling, chest pains or nausea. Allergies Allergy/AdvReac Type Severity Reaction Status Date / Time No Known Drug Allergies Allergy Verified 10/07/23 06:03 Home Medications Medication Instructions Recorded Confirmed Type omeprazole 40 mg capsule,delayed 40 mg PO QAM 08/19/19 10/07/23 History release cholecalciferol (vitamin D3) 50 2,000 units PO QAM 12/11/19 10/07/23 History mcg (2,000 unit) tablet mecobalamin (vitamin B12) 500 mcg 500 mcg PO QAM 07/10/23 10/07/23 History chewable tablet aspirin 81 mg tablet,delayed 81 mg PO QAM 09/12/23 10/07/23 History release (Enteric Coated Aspirin) clopidogrel 75 mg tablet 75 mg PO QAM 09/12/23 10/07/23 History pravastatin 20 mg tablet 20 mg PO HS #60 tabs 09/24/23 10/07/23 Rx sildenafil (pulm.hypertension) 20 20 mg PO DAILY PRN sexual activity 10/07/23 10/07/23 History mg tablet (Revatio) Patient History Medical History (Updated 10/07/23 @ 13:24 by Alex Gregg MD) Stenosis of right carotid artery Urinary retention Improved since Greenlight laser, denies urinary retention with procedures Carotid artery disease Neck CTA 07/23/23: 60-70% stenosis of the pRICA (2 cm distal to the vessel origin), No LICA stenosis History of stroke 07/09/2023, indicental finding on MRI scan for his hearing/auditory nerve due to hearing loss > carotids subsequently checked and significant stenosis f ound Asymptomatic; currently on plavix and aspirin High cholesterol "stable" w/medication GERD (gastroesophageal reflux disease) "silent reflux" controlled, stable per pt Sensorineural hearing loss of both ears Small bowel obstruction, partial Pt denies, "resolved" [facility] 05/2020 admission records Elevated PSA Under annual surveillance Lumbar spondylosis Per records, patient denies Muscle cramp, nocturnal Surgical History History of esophagogastroduodenoscopy (EGD) Hx of colonoscopy History of throat surgery polyp removed from larynx History of prostate surgery Greenlight laser surgery on prostate Status post incision and drainage for a sebaceous cyst H/O ligation of vein S/P vasectomy History of prostate biopsy S/P appendectomy Family History Mother Lung cancer Brother Prostate cancer Father COPD (chronic obstructive pulmonary disease) Family/Other Hypertension Denies family history of Ovarian cancer Myocardial infarction Breast cancer Colorectal cancer Social History Smoking Status: Former smoker Tobacco Type: Cigarettes Smoking End Date: remote hx; Second Hand Exposure: Yes (hx); Do You Dip or Chew Tobacco: No; Tobacco Cessation Education Requested by Patient: No Hx Alcohol Use: Yes (not anymore) Hx Substance Use: Yes Last Used Substance Other:: experimented with marijuana in college many years ago Preferred Language: Mongolian Communication Ability: Effective Visual Impairment: No Limitations Hearing Ability: Normal Panama Hat Smearer Required: No Beliefs That Will Affect Care: None marital status: Current Living Situation: Alone current occupational status: retired How many Children do You have: 0 Other Information That Helps Us Care for You: No Feels Safe at Home: Yes Safety Concerns: Feels Safe At This Time Diet: regular during the past year weight has: remained stable Dental Care, Regularly: Yes Physical Activity Frequency: 3-4 Times per Week Seatbelt Use: always Sunscreen Use: No Assistive Devices: Glasses and Hearing Aid - Bilateral Assistive Devices Comment: reading glasses prn Review of Systems Review of Systems: All systems reviewed & are unremarkable except as noted in HPI & below Physical Exam Physical Exam: Constitutional: Patient appears to be of their stated age. Patient is in no apparent distress. Patient is well-developed. Eyes: Pupils are equal round and reactive to light. Conjunctivae are normal. Anicteric sclera. Ears nose, mouth and throat: Mallampati class 2. Normal posterior oropharynx. Uvula is midline. Neck: Trachea is midline. Visual inspection is normal. Respiratory: Clear to auscultation bilaterally. No use of accessory muscles. No significant clubbing noted. Cardiovascular: Regular rate and rhythm. No murmurs. No edema. Gastrointestinal: Normal bowel sounds, soft, nontender and nondistended. No hepatosplenomegaly noted. Musculoskeletal: No cyanosis. Patient is able to move all extremities. Strength is 5 out of 5 in the upper and lower extremities. Skin: No rashes, warm dry and intact. Neurologic: No obvious focal neurological deficits seen. Psychiatric: Alert and oriented x3 with a euthymic affect. Results & Data Results & Data Vital Signs (Past 12 Hours) Vital Signs Temp Pulse Pulse Resp BP BP BP 10/07/23 12:05 72 18 123/67 10/07/23 11:50 77 16 131/74 10/07/23 11:35 75 20 132/68 10/07/23 11:20 76 18 126/64 10/07/23 11:05 36.4 C L 73 15 129/77 10/07/23 11:00 75 16 112/72 10/07/23 10:50 75 17 123/64 10/07/23 10:40 85 19 119/59 L 10/07/23 10:30 83 14 119/68 10/07/23 10:20 98 H 16 120/77 10/07/23 10:10 36.0 C L 98 H 23 120/60 10/07/23 10:05 35.5 C L 98 H 22 135/76 10/07/23 06:24 138/85 143/70 H 10/07/23 05:44 36.5 C 56 L 20 126/76 162/77 H Pulse Ox O2 Del Method O2 Flow Rate 10/07/23 12:05 95 Room Air 10/07/23 11:50 95 Room Air 10/07/23 11:35 97 Room Air 10/07/23 11:20 94 Room Air 0 10/07/23 11:05 96 Room Air 0 10/07/23 11:00 96 Room Air 0 10/07/23 10:50 97 Room Air 0 10/07/23 10:40 96 Room Air 0 10/07/23 10:30 100 Room Air 0 10/07/23 10:20 100 Oxymask 2 10/07/23 10:10 100 Oxymask 4 10/07/23 10:05 100 Oxymask 6 10/07/23 06:24 10/07/23 05:44 97 Room Air Coding Level of Care Code 52705 IN/OBS CONSULT LVL 2,35M Diagnoses Stenosis of right carotid artery I65.21
[2023-10-07] MEDS: ceFAZolin 2000MG 2,000 MG/15 ML SYR IV SCH ×2 (14:29→20:06)
[2023-10-07] MEDS ORDERED: PRAVASTATIN SOD 20 MG TAB PO SCH (21:00)
[2023-10-08] MEDS ORDERED: CHOLECALCIFEROL 1,000 UNITS 25 MCG TAB PO SCH (09:00)
[2023-10-08] MEDS ORDERED: ASPIRIN 81 MG ECTAB PO SCH (09:00)
[2023-10-08] MEDS ORDERED: CLOPIDOGREL BISULFATE 75 MG TAB PO SCH (09:00)
[2023-10-08] MEDS ORDERED: CYANOCOBALAMIN (B-12) 500 MCG TABLET PO SCH (09:00)
[2023-10-08] MEDS ORDERED: PANTOprazole 40 MG TAB PO SCH (09:00)
--- NOTE | 2023-10-08 10:35 | Surgery Progress Note ---
Date of Service October 08, 2023 Assessment & Plan (1) Internal carotid artery stent present: Plan: Patient is postop day 1 post TCAR. He is doing well. He will be discharged today. Admission and Anticipated Discharge Date Admission Date: October 07, 2023 Subjective This patient is postop day 1 post TCAR. He is awake alert. He has no complaints. He denies any neurodeficits. Physical Exam Constitutional: WD/WN, vitals as above Neck: trachea midline Respiratory: normal respiratory effort; no respiratory distress Cardiovascular: Rate/Rhythm: regular rate and regular rhythm Skin: + incision (Incision dry and clean. Pun cture site has no complications.) Neurologic: CN's II-XI intact bilaterally and moves all extremities Psychiatric: A+Ox3, euthymic affect Results & Data Vital Signs (Past 12 Hours) Vital Signs Temp Pulse Pulse Resp BP BP BP 10/08/23 09:30 36.7 C 62 18 119/63 117/81 10/08/23 08:00 10/08/23 08:00 59 L 10/08/23 06:55 56 L 26 H 10/08/23 06:10 42 L 15 10/08/23 06:01 98/67 L 10/08/23 06:01 49 L 19 10/08/23 06:00 65 19 10/08/23 05:50 37 L 19 10/08/23 05:40 51 L 20 10/08/23 05:30 52 L 17 10/08/23 05:20 41 L 12 10/08/23 05:10 40 L 18 10/08/23 05:01 39 L 12 10/08/23 05:01 107/48 L 10/08/23 05:00 46 L 10 L 10/08/23 04:50 37 L 18 10/08/23 04:40 79 15 10/08/23 04:30 51 L 13 10/08/23 04:20 48 L 19 10/08/23 04:10 33 L 13 10/08/23 04:00 113/59 L 10/08/23 04:00 55 L 16 10/08/23 03:50 61 14 10/08/23 03:40 67 19 10/08/23 03:30 50 L 18 10/08/23 03:20 45 L 10 L 10/08/23 03:10 49 L 15 10/08/23 03:00 119/61 10/08/23 03:00 64 29 H 10/08/23 02:50 47 L 16 10/08/23 02:40 61 18 10/08/23 02:30 74 16 10/08/23 02:20 62 14 10/08/23 02:10 66 8 L 10/08/23 02:01 117/53 L 10/08/23 02:01 48 L 18 10/08/23 02:00 47 L 15 10/08/23 01:50 48 L 19 10/08/23 01:40 60 21 10/08/23 01:30 49 L 19 10/08/23 01:20 66 20 10/08/23 01:10 46 L 21 10/08/23 01:00 47 L 15 10/08/23 00:50 47 L 11 L 10/08/23 00:40 47 L 16 10/08/23 00:30 48 L 16 10/08/23 00:20 47 L 23 10/08/23 00:10 49 L 18 10/08/23 00:00 48 L 25 H 10/08/23 00:00 117/62 10/08/23 00:00 48 L 10/07/23 23:50 57 L 26 H 10/07/23 23:40 51 L 22 10/07/23 23:30 58 L 18 10/07/23 23:20 52 L 21 10/07/23 23:10 54 L 19 10/07/23 23:00 100/57 L 10/07/23 23:00 57 L 26 H 10/07/23 22:50 54 L 14 10/07/23 22:40 54 L 29 H Pulse Ox O2 Del Method 10/08/23 09:30 96 Room Air 10/08/23 08:00 Room Air 10/08/23 08:00 10/08/23 06:55 95 Room Air 10/08/23 06:10 96 10/08/23 06:01 10/08/23 06:01 94 10/08/23 06:00 95 10/08/23 05:50 95 10/08/23 05:40 95 10/08/23 05:30 97 10/08/23 05:20 95 10/08/23 05:10 96 10/08/23 05:01 10/08/23 05:01 10/08/23 05:00 96 10/08/23 04:50 96 10/08/23 04:40 98 10/08/23 04:30 95 10/08/23 04:20 96 10/08/23 04:10 95 10/08/23 04:00 10/08/23 04:00 93 10/08/23 03:50 95 10/08/23 03:40 94 10/08/23 03:30 94 10/08/23 03:20 95 10/08/23 03:10 96 10/08/23 03:00 10/08/23 03:00 95 10/08/23 02:50 96 10/08/23 02:40 97 10/08/23 02:30 98 10/08/23 02:20 95 10/08/23 02:10 96 10/08/23 02:01 10/08/23 02:01 96 10/08/23 02:00 96 10/08/23 01:50 97 10/08/23 01:40 97 10/08/23 01:30 96 10/08/23 01:20 95 10/08/23 01:10 96 10/08/23 01:00 95 10/08/23 00:50 95 10/08/23 00:40 96 10/08/23 00:30 95 10/08/23 00:20 97 10/08/23 00:10 96 10/08/23 00:00 98 10/08/23 00:00 10/08/23 00:00 10/07/23 23:50 99 10/07/23 23:40 98 10/07/23 23:30 98 10/07/23 23:20 99 10/07/23 23:10 99 10/07/23 23:00 10/07/23 23:00 97 10/07/23 22:50 99 10/07/23 22:40 99
--- NOTE | 2023-10-08 10:36 | Discharge Summary ---
Date of Service October 08, 2023 Admission HPI Per Admitting Provider Chief Complaint rm#7 here for consult, JONATHAN Reason for Consultation Carotid artery stenosis History of Present Illness I had the pleasure of seeing Christiano today for evaluation of his carotid disease. As you know he is a 78-year-old gentleman who is being worked up for bilateral hearing loss. 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 He subsequently had a CTA of the carotids which showed a 70% narrowing of his right internal carotid artery. He had no functional symptoms of the stroke at that time. He was placed on Plavix and aspirin. He has no complaints of claudication. He has no complaints of cerebrovascular insufficiency. Review of Systems 10 systems were reviewed. Only positive findings occasional cough. Rest of the positive findings are per the HPI. Physical Exam Vitals & Measurements HR: 55 (Monitored) BP: 156/82 SpO2: 98% Input and Output - Last 24 hours (Last 8 hours) No I/O Data Found: On exam he is awake alert oriented x3. No apparent distress. His blood pressure is 160/80 on the left and 156/82 on the right. No carotid bruits. His radials and carotids are +2 bilaterally. Heart had a regular rate and rhythm. Lungs are clear. Abdominal exam is benign I cannot appreciate a pulsatile mass. Distally he has good capillary refill both feet with normal pedal pulses. Diagnostic Results MRI showed acute infarct of the body of the right corpus callosum. CT angiogram showed a 70% narrowing of the right internal carotid artery. Assessment/Plan Carotid artery stenosis with cerebral infarction At this point being that he did have acute stroke on MRI he has a 70% carotid lesion can be labeled as symptomatic requiring intervention. We went over the risks options and benefits of endarterectomy versus TCAR. He understood the risks options and benefits and elected to go ahead with the TCAR procedure. Scheduled in the near future and we will keep you informed of his results. Thank you very much for letting us participate in the care of this patient. Sincerely, Abelino VIDAL Problem List/Past Medical History Ongoing AK (actinic keratosis) Anemia Barretts esophagus Carotid artery stenosis with cerebral infarction Gastric nodule GERD (gastroesophageal reflux disease) Hiatal hernia HTN (hypertension) Renal insufficiency SK (seborrheic keratosis) Historical None Procedure/Surgical History Esophagogastroduodenoscopy (08/21/2021) Esophagogastroduodenoscopy (07/12/2021) Shave biopsy (01/31/2021) Endoscopic ultrasound of upper gastrointestinal tract (09/21/2014) Colonoscopy (07/13/2014) Esophagogastroduodenoscopy (07/13/2014) Medical records review (06/15/2014) Laboratory findings data interpretation (06/15/2014) Esophagogastroduodenoscopy (03/18/2014) Colonoscopy (09/09/2006) B/L Legs-Varicose vein Laser surgery 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 H/O vasectomy Appendectomy Medications Home aspirin(aspirin 81 mg oral delayed release tablet), 81 mg= 1 tab, PO, Daily cholecalciferol(Vitamin D3 1000 intl units oral capsule), 1000 Int_Unit= 1 cap, PO, Daily clopidogrel(clopidogrel 75 mg oral tablet), 75 mg= 1 tab, PO, Daily clopidogrel(Plavix 75 mg oral tablet), 1 tab, PO, Daily, 11 refills cyanocobalamin(Vitamin B12 1000 mcg oral tablet), 1000 mcg= 1 tab, PO, Daily fluorouracil topical(fluorouracil 5% topical cream), 1 appl, topical, qhs, 1 refills omeprazole(omeprazole 40 mg oral delayed release capsule), See Instructions, 3 refills pravastatin(pravastatin 20 mg oral tablet), 20 mg= 1 tab, PO, qhs Allergies NKA Social History Smoking Status Former Smoker, quit > 1 yr Alcohol - Denies Alcohol Use Substance Abuse - Denies Substance Abuse Tobacco - Denies Tobacco Use Family History Emphysema of lung: Father. Enlarged prostate: Brother. Hypertension: Mother. Lung cancer......: Mother. Health Status Family Member(s) Signature Line Electronic Signature on File Ascencion Motley MD Author Signature Dt/Tm: 09/12/2023 10:31 AM Natural Science Manager [facility] [place], [address] [place], [place] [address]FORMERLY [facility] Result Type: .Outpt Ltr Date of Service: September 12, 2023 10:26 EST Authorization Status: Final Subject: Consult Note Author or Import Date: MD Motley Eugene J on September 12, 2023 10:31 EST Verified By: MD Motley Eugene J on September 12, 2023 10:31 EST Encounter info: [id number], PAULIE ZAVALETA, Clinic, 09/12/2023 - 09/12/2023 Admission Exam Per Admitting Provider On exam he is awake alert oriented x3. No apparent distress. His blood pressure is 160/80 on the left and 156/82 on the right. No carotid bruits. His radials and carotids are +2 bilaterally. Heart had a regular rate and rhythm. Lungs are clear. Abdominal exam is benign I cannot appreciate a pulsatile mass. Distally he has good capillary refill both feet with normal pedal pulses. Principal Diagnosis Symptomatic right internal carotid artery stenosis Discharge Exam Constitutional WD/WN, vitals as above Neck trachea midline Respiratory normal respiratory effort; no respiratory distress Cardiovascular Rate/Rhythm: regular rate and regular rhythm Skin + incision (Incision dry and clean. Puncture site has no complications.) Neurologic CN's II-XI intact bilaterally and moves all extremities Psychiatric A+Ox3, euthymic affect Discharge Data Allergies Allergy/AdvReac Type Severity Reaction Status Date / Time No Known Drug Allergies Allergy Verified 10/07/23 06:03 Consultations 10/07/23 12:55 Consult Line Installer Trolley Routine Procedures Performed Operation Date: 10/07/23 08:00 Actual Procedures p Right Transcarotid Artery Revascularization(Right) - Ascencion Motley MD Ordered Studies 10/07/23 07:11 EV angio carotid cerv RT Routine US EV guide vascular access Routine Hospital Course (1) Internal carotid artery stent present: Patient is postop day 1 post TCAR. He is doing well. He will be discharged today. Total Time Total Time Spent Total Time Spent (In Minutes): 0 Discharge Plan Discharge Items Patient Disposition: Home - Self-Care Reason For Visit: RIGHT CARTOID STENOSIS,SYMTOMATIC Discharge Diagnosis: Right internal carotid artery stenosis, symptomatic Activity: Per Instructions section Non-emergency contact: Surgeon Call non-emergency contact if: your temperature is above 101.5, your wound has increased redness, your wound has increased drainage and your wound pain has increased Follow-up/Referrals: ProGildardo MD [Primary Care Provider] - Diet: Heart Healthy Addtl Attending Provider Instructions: SPECIAL CARE INSTRUCTIONS: Medications: * Continue to take Aspirin, Plavix, and statin as directed. Incision Care: * You may shower, but do not rub incision. You may let the warm soapy water run over it. Be sure to dry the incision well after bathing. * Do not shave directly over the incision until it is healed. * DO NOT IMMERSE THE INCISION IN A TUB/POOL/etc. UNTIL HEALED. Restrictions: * Do not drive for at least one week or if you are still taking any narcotic pain medication. * Do not lift anything heavier than a gallon of milk for one week after going home. Possible Complications: * Numbness - It is normal to have some numbness around the incision. Numbness can extend beyond the incision to areas of the neck, ear and face. The numbness is due to bruising of nerves during the surgery and will gradually improve over a period of months. * Hoarseness/Difficulty Speaking and Swallowing - The bruising of nerves in the neck can also cause a hoarse voice, difficulty speaking or swallowing. This may improve over time, HOWEVER, if it continues for more than a few days please contact our office ([phone]). * Excessive Swelling - There will be some swelling immediately after surgery which usually resolves within one week. If you notice that the swelling is getting worse, notify your surgeon ([phone]). * Drainage/Bleeding - If there is any drainage or bleeding, it should be a very small amount (less than a teaspoon per day). If you have excessive bleeding or drainage from the incision, call your surgeon ([phone]) right away. ACTIVATION OF EMERGENCY MEDICAL SYSTEM: Call 911, immediately, if you experience any of the following: Warning Signs and Symptoms of Stroke: * Sudden numbness or weakness of the face, arm or leg, especially on one side of the body * Sudden confusion, trouble speaking or understanding * Sudden trouble seeing in one or both eyes * Sudden trouble walking, dizziness, loss of balance or coordination * Sudden severe headache with no cause Do not delay calling 911 if you experience any warning signs or symptoms of a stroke. Delay in seeking medical attention may affect what treatments can be given to you. Risk Factors for Stroke: You can reduce your chances of stroke by working with your medical provider to adopt a healthy lifestyle. Some specific ways to lower your chance of stroke are: * If you are a smoker, now is the time to stop smoking cigarettes * If you are diabetic, improve the control of your blood sugars * Avoid excessive amounts of alcohol * Control high blood pressure * Lose weight if you are overweight * Be sure to lead an active lifestyle * Eat a healthy diet low in salt, cholesterol and fat You should know about other risk factors for stroke that you are unable to control. These include: * Age 55 years or older * Male gender * Certain racial groups: , or / * Family History of Stroke, Mini stroke or Heart Attack * Sickle Cell Disease You will be receiving a call from the Vascular Surgery Nurse after you are discharged. FOLLOW UP VISIT: It is important for you to keep your follow up appointments with your medical provider. Keep any scheduled doctor appointments. Call [phone] to schedule a follow up appointment if one not already scheduled. Pending Studies at Discharge: No Stand-Alone Forms: [facility] [employer], Smoking Cessation Medications and DC Order Prescriptions: Continued pravastatin 20 mg tablet 20 mg PO HS Qty: 60 5RF omeprazole 40 mg capsule,delayed release(DR/EC) 40 mg PO QAM cholecalciferol (vitamin D3) 2,000 unit tablet 2,000 units PO QAM mecobalamin (vitamin B12) 500 mcg tablet,chewable 500 mcg PO QAM clopidogrel 75 mg tablet 75 mg PO QAM aspirin [Enteric Coated Aspirin] 81 mg tablet,delayed release (DR/EC) 81 mg PO QAM sildenafil (pulm.hypertension) [Revatio] 20 mg tablet 20 mg PO DAILY PRN (Reason: sexual activity) Rx Instructions: 1-5 tablets as needed for activity. No more than 100 mg in 24 hr. Discharge Orders: Discharge Order (Routine); Ordered 10/08/23 Ordered By: Ascencion Moltey Admission Data Admit Date/Time: 10/07/23 07:42 Attending Provider: Ascencion Motley Admit Provider: Ascencion Motley Primary Care Provider: Gildardo Galdamez. Other Providers: Meño Guerrero; Parker Carson; Alex Gregg; Tacho Madsen; Isidro Escobar; Gualberto Gasca; Enoc Pérez; Faina Ng; Vicky Cruz; Drew Benitez; Mohan Humphrey; Diana Zheng
== END 2023-10-08 12:06 | disposition home or self-care (01) | DRG 36 ==
LOC: ASU 05:34 → 1E 07:42
PROC: EV.TCAR (2023-10-07 08:00)